=== PATIENT | female | born 1995 | race Caucasian/White ===

== ENCOUNTER 2018-11-21 01:04 | Emergency (ER) | payer OTHER ==
[~2018-11-21] VITALS: Ht 171.4 cm; Wt 70.8 kg
--- OUTSIDE RECORDS SUMMARY | 2018-11-21 01:11 | XMS REPORT | CCD ---
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 Name Role Phone PP Unavailable CCM Unavailable Summary Purpose Interface Exchange Insurance Providers Payer name Policy type / Coverage type Covered green party ID Effective Begin Date Effective End Date [employer] [id number] 2017 Unknown [employer] (2013 THRU) [employer] [id number] 2017 Unknown Family History Family History data not found Social History Social History Element Codes Description Effective Dates Marital status Unknown Single 05/05/2017 Number of children Unknown 0 05/05/2017 Employment Unknown Currently employed [employer] [place] 05/05/[address]: 594892557 Never smoker 05/05/[address]: 595516126 Never drinks alcohol 05/05/2017 Allergies, Adverse Reactions, Alerts Substance Reaction Codes Entered Date Inactivated Date Status NO KNOWN DRUG ALLERGIES Unknown 05/05/2017 No Inactive Date Active Past Medical History Illness Codes Condition Status Onset Date Resolved Date Acute laryngopharyngitis ICD-9: 465.0 ICD-10: J06.0 Active 08/29/2017 Unknown Other allergic rhinitis ICD-9: 477.8 ICD-10: J30.89 Active 09/13/2017 Unknown Acute suppurative otitis media without spontaneous rupture of ear drum, recurrent, left ear ICD-9: 382.00 ICD-10: H66.005 Active 08/31/2018 Unknown Encounter for surveillance of contraceptive pills ICD-9: V25.41 ICD-10: Z30.41 Active 10/27/2017 Unknown Encounter for initial prescription of contraceptive pills ICD-9: V25.01 ICD-10: Z30.011 Active 08/29/2017 Unknown Infectious mononucleosis, unspecified without complication ICD-9: 075 ICD-10: B27.90 Active 10/17/2017 Unknown Gastro-esophageal reflux disease without esophagitis ICD-9: 530.81 ICD-10: K21.9 Active 08/29/2017 Unknown Other fatigue ICD-9: 780.79 ICD-10: R53.83 Active 09/27/2017 Unknown Other malaise ICD-9: 780.79 ICD-10: R53.81 Active 09/27/2017 Unknown Other acute sinusitis ICD-9: 461.8 ICD-10: J01.80 Active 09/13/2017 Unknown Acute serous otitis media, left ear ICD-9: 381.01 ICD-10: H65.02 Active 08/29/2017 Unknown Contact with and (suspected) exposure to infections with a predominantly sexual mode of transmission ICD-9: V01.6 ICD-10: Z20.2 Active 05/05/2017 Unknown Problems Condition Codes Effective Dates Condition Status Acute laryngopharyngitis ICD-9: 465.0 ICD-10: J06.0 08/29/2017 Active Other allergic rhinitis ICD-9: 477.8 ICD-10: J30.89 09/13/2017 Active Acute suppurative otitis media without spontaneous rupture of ear drum, recurrent, left ear ICD-9: 382.00 ICD-10: H66.005 08/31/2018 Active Encounter for surveillance of contraceptive pills ICD-9: V25.41 ICD-10: Z30.41 10/27/2017 Active Encounter for initial prescription of contraceptive pills ICD-9: V25.01 ICD-10: Z30.011 08/29/2017 Active Infectious mononucleosis, unspecified without complication ICD-9: 075 ICD-10: B27.90 10/17/2017 Active Gastro-esophageal reflux disease without esophagitis ICD-9: 530.81 ICD-10: K21.9 08/29/2017 Active Other fatigue ICD-9: 780.79 ICD-10: R53.83 09/27/2017 Active Other malaise ICD-9: 780.79 ICD-10: R53.81 09/27/2017 Active Other acute sinusitis ICD-9: 461.8 ICD-10: J01.80 09/13/2017 Active Acute serous otitis media, left ear ICD-9: 381.01 ICD-10: H65.02 08/29/2017 Active Contact with and (suspected) exposure to infections with a predominantly sexual mode of transmission ICD-9: V01.6 ICD-10: Z20.2 05/05/2017 Active Medications Medication Codes Instructions Start Date Stop Date Status Fill Instructions levonorgestrel 1.5 mg tablet RxNorm: 003895 1 Tablet(s) PO once as soon as possible within 72 hours of unprotected sex 10/25/2018 No Stop Date Active levonorgestrel 1.5 mg tablet RxNorm: 944727 1 Tablet(s) PO once as soon as possible within 72 hours of unprotected sex 10/25/2018 10/24/2018 Inactive Keflex 500 mg capsule RxNorm: 297771 1 Capsule(s) PO TID 201710/04/2018 Inactive ceftriaxone 500 mg solution for injection RxNorm: 6422635 Inj 09/25/2018 09/25/2018 Inactive levonorgestrel 1.5 mg tablet RxNorm: 197010 1 Tablet(s) PO once as soon as possible within 72 hours of unprotected sex 09/08/2018 10/24/2018 Inactive Lo Loestrin Fe 1 mg-10 mcg (24)/10 mcg (2) tablet RxNorm: 5914835 1 Tablet(s) PO UD skip placebo week 09/05/20182018 Active prednisone 10 mg tablet RxNorm: 754499 Tablet(s) PO 08/31/2018 No Stop Date Active 6, 5,4,3,2,1 ceftriaxone 500 mg solution for injection RxNorm: 3017606 1 Milliliter(s) Inj 08/31/2018 08/31/2018 Inactive Kenalog 40 mg/mL suspension for injection RxNorm: 5854308 1 Milliliter(s) Inj 08/31/2018 08/31/2018 Inactive Augmentin 875 mg-125 mg tablet RxNorm: 053178 3/4 Tablet(s) PO BID 08/31/2018 09/09/2018 Inactive amoxicillin 500 mg capsule RxNorm: 562556 1 Capsule(s) PO TID 08/29/2018 08/29/2018 Inactive Lo Loestrin Fe 1 mg-10 mcg (24)/10 mcg (2) tablet RxNorm: 8398393 1 Tablet(s) PO UD 04/20/2018 09/04/2018 Inactive Lo Loestrin Fe 1 mg-10 mcg (24)/10 mcg (2) tablet RxNorm: 7737577 TAKE ONE TABLET BY MOUTH DIRECTED 03/27/2018 No Stop Date Active Lo Loestrin Fe 1 mg-10 mcg (24)/10 mcg (2) tablet RxNorm: 2106392 1 Tablet(s) PO UD 03/27/2018 04/19/2018 Inactive Lo Loestrin Fe 1 mg-10 mcg (24)/10 mcg (2) tablet RxNorm: 2226754 1 Tablet(s) PO UD 10/27/2017 02/23/2018 Inactive Tessalon Perles 100 mg capsule RxNorm: 965290 1-2 Capsule(s) PO TID as needed cough 09/14/2017 09/13/2017 Inactive Tessalon Perles 100 mg capsule RxNorm: 950422 1-2 Capsule(s) PO TID as needed cough 09/14/2017 09/18/2017 Inactive ceftriaxone 500 mg solution for injection RxNorm: 8083917 Inj 09/13/2017 09/13/2017 Inactive Kenalog 40 mg/mL suspension for injection RxNorm: 0900265 Milliliter(s) Inj 09/13/2017 09/13/2017 Inactive Zithromax Z-Rafael 250 mg tablet RxNorm: 744380 1 Tablet(s) PO UD 09/13/2017 04/10/2018 Inactive prednisone 20 mg tablet RxNorm: 212741 2 Tablet(s) PO daily 09/17/2017 Inactive Nexium 24HR 22.3 mg capsule,delayed release RxNorm: 931878 1 Capsule(s) PO daily 08/29/2017 04/11/2018 Inactive Lo Loestrin Fe 1 mg-10 mcg (24)/10 mcg (2) tablet RxNorm: 3556724 1 Tablet(s) PO UD 08/29/2017 10/26/2017 Inactive amoxicillin 500 mg capsule RxNorm: 536910 1 Capsule(s) PO TID 08/29/2017 09/04/2017 Inactive Depo-Provera 150 mg/mL intramuscular syringe RxNorm: 8105025 Milliliter(s) IM No Start Date 08/27/2017 Inactive levonorgestrel 1.5 mg tablet RxNorm: 113367 1 Tablet(s) PO once as soon as possible within 72 hours of unprotected sex No Start Date 09/07/2018 Inactive Medication Administered Medication Codes Instructions Start Date Status ceftriaxone 500 mg solution for injection RxNorm: 6677668 09/25/2018 No longer Active ceftriaxone 500 mg solution for injection RxNorm: 4016102 1Milliliter 08/31/2018 No longer Active Kenalog 40 mg/mL suspension for injection RxNorm: 7806957 1Milliliter 08/31/2018 No longer Active ceftriaxone 500 mg solution for injection RxNorm: 4514776 09/13/2017 No longer Active Kenalog 40 mg/mL suspension for injection RxNorm: 5557789 Milliliter 09/13/2017 No longer Active Immunizations No Immunization data Assessments Condition Codes Effective Dates Acute laryngopharyngitis ICD-10: J06.0 ICD-9: 465.0 09/25/2018 Other allergic rhinitis ICD-10: J30.89 ICD-9: 477.8 09/25/2018 Acute suppurative otitis media without spontaneous rupture of ear drum, recurrent, left ear ICD-10: H66.005 ICD-9: 382.00 08/31/2018 Encounter for surveillance of contraceptive pills ICD-10: Z30.41 ICD-9: V25.41 04/20/2018 Infectious mononucleosis, unspecified without complication ICD-10: B27.90 ICD-9: 075 10/17/2017 Gastro-esophageal reflux disease without esophagitis ICD-10 : K21.9 ICD-9: 530.81 09/27/2017 Other fatigue ICD-10: R53.83 ICD-9: 780.79 09/27/2017 Other malaise ICD-10: R53.81 ICD-9: 780.79 09/27/2017 Other acute sinusitis ICD-10: J01.80 ICD-9: 461.8 09/13/2017 Acute serous otitis media, left ear ICD-10: H65.02 ICD-9: 381.01 08/29/2017 Encounter for initial prescription of contraceptive pills ICD-10: Z30.011 ICD-9: V25.01 08/29/2017 Contact with and (suspected) exposure to infections with a predominantly sexual mode of transmission ICD-10: Z20.2 ICD-9: V01.6 05/05/2017 Reason For Visit Reason For Visit Effective Dates Notes cough 09/25/2018 sore throat 08/31/2018 sore throat 08/29/2018 medication follow up 04/20/2018 medication follow up 10/27/2017 fatigue 10/17/2017 fatigue 09/27/2017 sinus congestion 09/13/2017 sinus congestion 08/29/2017 rash 05/05/2017 Results Observation Observation Code Item Item Code Result Date Comp Metabolic Ijb933 NA 139 mEq/L 10/18/2017 Comp Metabolic Jaz959 K 4.3 mEq/L 10/18/2017 Comp Metabolic Pad532 CL 103 mEq/L 10/18/2017 Comp Metabolic Fga187 CO2 28.0 mEq/L 10/18/2017 Comp Metabolic Lom128 ANION GAP 12 10/18/2017 Comp Metabolic Uha006 GLUCOSE 82 mg/dL 10/18/2017 Comp Metabolic Rjc109 Creat 0.7 mg/dL 10/18/2017 Comp Metabolic Cdj621 eGFR 106 ml/min/1.73m2 10/18/2017 Comp Metabolic Zvb916 BUN 10 mg/dL 10/18/2017 Comp Metabolic Tvs937 B/C Ratio 13.5 Ratio 10/18/2017 Comp Metabolic Muc727 CALCIUM 9.4 mg/dL 10/18/2017 Comp Metabolic Wtj451 ALK PHOS 77 U/L 10/18/2017 Comp Metabolic Xgx247 AST(SGOT) 12 U/L 10/18/2017 Comp Metabolic Icb371 ALT(SGPT) 9 U/L 10/18/2017 Comp Metabolic Etl951 BILI T 0.4 mg/dL 10/18/2017 Comp Metabolic Cvi992 ALBUMIN 4.3 g/dL 10/18/2017 Comp Metabolic Ads758 TPRO 6.7 g/dL 10/18/2017 Comp Metabolic Txh897 GLOB 2.4 g/dL 10/18/2017 Comp Metabolic Opo291 A/G Ratio 1.8 Ratio 10/18/2017 Comp Metabolic Kvl251 Osmo 276 mOsmo 10/18/2017 Cbc With Differential Ord2 WBC 6.95 K/ul 10/18/2017 Cbc With Differential Ord2 RBC 4.27 M/ul 10/18/2017 Cbc With Differential Ord2 HGB 12.0 g/dl 10/18/2017 Cbc With Differential Ord2 HCT 37.3 % 10/18/2017 Cbc With Differential Ord2 Neut% 51.9 % 10/18/2017 Cbc With Differential Ord2 MCV 87.4 fl 10/18/2017 Cbc With Differential Ord2 Lymph% 39.4 % 10/18/2017 Cbc With Differential Ord2 Nolan% 6.9 % 10/18/2017 Cbc With Differential Ord2 MCH 28.1 pg 10/18/2017 Cbc With Differential Ord2 MCHC 32.2 pg 10/18/2017 Cbc With Differential Ord2 Eos% 1.2 % 10/18/2017 Cbc With Differential Ord2 PLT 293 K/ul 10/18/2017 Cbc With Differential Ord2 Baso% 0.6 % 10/18/2017 Cbc With Differential Ord2 RDW 12.9 % 10/18/2017 Cbc With Differential Ord2 Neut ABS# 3.61 K/ul 10/18/2017 Cbc With Differential Ord2 Lymph ABS# 2.74 K/ul 10/18/2017 Cbc With Differential Ord2 Nolan ABS# 0.5 K/ul 10/18/2017 Cbc With Differential Ord2 Eos ABS# 0.1 K/ul 10/18/2017 Cbc With Differential Ord2 Baso ABS# 0.0 K/ul 10/18/2017 GC/CHL PRB [id number] Chl trach DNA Negative 05/06/2017 GC/CHL PRB [id number] GC PROBE Negative 05/06/2017 Wet Prep [id number] Yeast Vaginal None 05/05/2017 Wet Prep [id number] Trichomonas None 05/05/2017 Review of Systems System Result Effective Dates Constitutional recent illness 09/25/2018 Constitutional chills 09/25/2018 Constitutional No diaphoresis 09/25/2018 Eyes No eye erythema 09/25/2018 Ears/Nose/Throat/Neck nasal allergies 03/2018 Ears/Nose/Throat/Neck nasal discharge 03/2018 Ears/Nose/Throat/Neck postnasal drip 03/2018 Ears/Nose/Throat/Neck sinus congestion Ears/Nose/Throat/Neck sore throat 2017 Cardiovascular No chest pain/pressure 03/2018 Cardiovascular No dyspnea 09/25/2018 Respiratory No chest congestion 2017 Respiratory cough 09/25/2018 Respiratory No dyspnea 09/25/2018 Gastrointestinal No constipation 2017 Gastrointestinal No diarrhea 09/25/2018 Gastrointestinal No nausea 09/25/2018 Gastrointestinal No vomiting 09/25/2018 Dermatologic No rash 09/25/2018 Neurologic No alteration of consciousness 09/25/2018 Neurologic No mental status change 2017 Constitutional No fever 09/25/2018 Constitutional recent illness 08/31/2018 Constitutional chills 08/31/2018 Constitutional No diaphoresis 08/31/2018 Constitutional fever 08/31/2018 Eyes No eye erythema 08/31/2018 Ears/Nose/Throat/Neck nasal allergies 09/2018 Ears/Nose/Throat/Neck nasal discharge 09/2018 Ears/Nose/Throat/Neck postnasal drip 09/2018 Ears/Nose/Throat/Neck sinus congestion Ears/Nose/Throat/Neck sore throat 2017 Cardiovascular No chest pain/pressure 09/2018 Cardiovascular No dyspnea 08/31/2018 Respiratory No chest congestion 2017 Respiratory cough 08/31/2018 Respiratory No dyspnea 08/31/2018 Gastrointestinal No constipation 2017 Gastrointestinal No diarrhea 08/31/2018 Gastrointestinal No nausea 08/31/2018 Gastrointestinal No vomiting 08/31/2018 Dermatologic No rash 08/31/2018 Neurologic No alteration of consciousness 08/31/2018 Neurologic No mental status change 2017 Ears/Nose/Throat/Neck otalgia 08/31/2018 Constitutional recent illness 08/29/2018 Constitutional chills 08/29/2018 Constitutional No diaphoresis 08/29/2018 Constitutional fever 08/29/2018 Eyes No eye erythema 08/29/2018 Ears/Nose/Throat/Neck nasal allergies 07/2018 Ears/Nose/Throat/Neck nasal discharge 07/2018 Ears/Nose/Throat/Neck postnasal drip 07/2018 Ears/Nose/Throat/Neck sinus congestion Ears/Nose/Throat/Neck sore throat 2017 Cardiovascular No chest pain/pressure 07/2018 Cardiovascular No dyspnea 08/29/2018 Respiratory No chest congestion 2017 Respiratory cough 08/29/2018 Respiratory No dyspnea 08/29/2018 Gastrointestinal No constipation 2017 Gastrointestinal No diarrhea 08/29/2018 Gastrointestinal No nausea 08/29/2018 Gastrointestinal No vomiting 08/29/2018 Dermatologic No rash 08/29/2018 Neurologic No alteration of consciousness 08/29/2018 Neurologic No mental status change 2017 Constitutional No recent illness 2017 Constitutional No chills 04/20/2018 Constitutional No diaphoresis 04/20/2018 Constitutional No fever 04/20/2018 Eyes No eye erythema 04/20/2018 Ears/Nose/Throat/Neck No nasal allergies 04/20/2018 Ears/Nose/Throat/Neck No nasal discharge 04/20/2018 Cardiovascular No chest pain/pressure Respiratory No chest congestion 2017 Respiratory No cough 04/20/2018 Gastrointestinal No abdominal pain 2017 Gastrointestinal No constipation 2017 Gastrointestinal No diarrhea 04/20/2018 Gastrointestinal No nausea 04/20/2018 Gastrointestinal No vomiting 04/20/2018 Neurologic No alteration of consciousness 04/20/2018 Neurologic No mental status change 2017 Cardiovascular No dyspnea 04/20/2018 Musculoskeletal No joint complaint 2017 Dermatologic No rash 04/20/2018 Constitutional No recent illness 2016 Constitutional No chills 10/27/2017 Constitutional No diaphoresis 10/27/2017 Constitutional No fever 10/27/2017 Eyes No eye erythema 10/27/2017 Ears/Nose/Throat/Neck No nasal allergies 10/27/2017 Ears/Nose/Throat/Neck No nasal discharge 10/27/2017 Cardiovascular No chest pain/pressure 05/2017 Respiratory No cough 10/27/2017 Respiratory No chest congestion 2016 Gastrointestinal No abdominal pain 2016 Gastrointestinal No constipation 2016 Gastrointestinal No diarrhea 10/27/2017 Gastrointestinal No vomiting 10/27/2017 Gastrointestinal No nausea 10/27/2017 Neurologic No alteration of consciousness 10/27/2017 Neurologic No mental status change 2016 Constitutional recent illness 10/17/2017 Constitutional No chills 10/17/2017 Constitutional No diaphoresis 10/17/2017 Constitutional fatigue 10/17/2017 Constitutional No fever 10/17/2017 Constitutional malaise 10/17/2017 Eyes No eye erythema 10/17/2017 Ears/Nose/Throat/Neck No nasal discharge 10/17/2017 Ears/Nose/Throat/Neck No nasal allergies 10/17/2017 Cardiovascular No chest pain/pressure Cardiovascular No dyspnea 10/17/2017 Respiratory No cough 10/17/2017 Respiratory No chest congestion 2016 Gastrointestinal abdominal pain 2016 Gastrointestinal No diarrhea 10/17/2017 Gastrointestinal No constipation 2016 Gastrointestinal No nausea 10/17/2017 Gastrointestinal No vomiting 10/17/2017 Musculoskeletal No joint complaint 2016 Neurologic No alteration of consciousness 10/17/2017 Neurologic No mental status change 2016 Constitutional recent illness 09/27/2017 Constitutional No chills 09/27/2017 Constitutional No diaphoresis 09/27/2017 Constitutional fatigue 09/27/2017 Constitutional No fever 09/27/2017 Constitutional malaise 09/27/2017 Eyes No eye erythema 09/27/2017 Ears/Nose/Throat/Neck nasal allergies 05/2017 Ears/Nose/Throat/Neck nasal discharge 05/2017 Cardiovascular No chest pain/pressure 05/2017 Cardiovascular No dyspnea 09/27/2017 Respiratory No chest congestion 2016 Respiratory No cough 09/27/2017 Gastrointestinal No constipation 2016 Gastrointestinal No diarrhea 09/27/2017 Gastrointestinal No nausea 09/27/2017 Gastrointestinal No vomiting 09/27/2017 Musculoskeletal No joint complaint 2016 Neurologic No alteration of consciousness 09/27/2017 Neurologic No mental status change 2016 Ears/Nose/Throat/Neck postnasal drip 05/2017 Ears/Nose/Throat/Neck sinus congestion Gastrointestinal No abdominal pain 2016 Constitutional recent illness 09/13/2017 Constitutional chills 09/13/2017 Constitutional No diaphoresis 09/13/2017 Constitutional fever 09/13/2017 Eyes No eye erythema 09/13/2017 Ears/Nose/Throat/Neck nasal allergies Ears/Nose/Throat/Neck nasal discharge Ears/Nose/Throat/Neck postnasal drip Ears/Nose/Throat/Neck sinus congestion Ears/Nose/Throat/Neck sore throat 2016 Cardiovascular No chest pain/pressure Cardiovascular No dyspnea 09/13/2017 Respiratory No chest congestion 2016 Respiratory cough 09/13/2017 Respiratory No dyspnea 09/13/2017 Gastrointestinal No constipation 2016 Gastrointestinal No diarrhea 09/13/2017 Gastrointestinal No nausea 09/13/2017 Gastrointestinal No vomiting 09/13/2017 Dermatologic No rash 09/13/2017 Neurologic No alteration of consciousness 09/13/2017 Neurologic No mental status change 2016 Constitutional fatigue 09/13/2017 Constitutional malaise 09/13/2017 Ears/Nose/Throat/Neck otalgia 09/13/2017 Respiratory dyspnea on exertion 2016 Respiratory productive sputum 09/13/2017 Constitutional recent illness 08/29/2017 Constitutional No chills 08/29/2017 Constitutional No diaphoresis 08/29/2017 Constitutional No fever 08/29/2017 Eyes No eye erythema 08/29/2017 Ears/Nose/Throat/Neck nasal allergies 07/2017 Ears/Nose/Throat/Neck nasal discharge 07/2017 Ears/Nose/Throat/Neck postnasal drip 07/2017 Ears/Nose/Throat/Neck No sore throat 07/2017 Ears/Nose/Throat/Neck No sinus congestion 08/29/2017 Ears/Nose/Throat/Neck otalgia 08/29/2017 Ears/Nose/Throat/Neck dizziness 2016 Cardiovascular No chest pain/pressure 07/2017 Cardiovascular No dyspnea 08/29/2017 Respiratory cough 08/29/2017 Respiratory No chest congestion 2016 Respiratory No dyspnea 08/29/2017 Gastrointestinal abdominal pain 2016 Gastrointestinal No constipation 2016 Gastrointestinal diarrhea 08/29/2017 Gastrointestinal gastroesophageal reflux 08/29/2017 Gastrointestinal No hematemesis 2016 Gastrointestinal No hematochezia 2016 Gastrointestinal No melena 08/29/2017 Gastrointestinal nausea 08/29/2017 Gastrointestinal No vomiting 08/29/2017 Musculoskeletal No joint complaint 2016 Dermatologic No rash 08/29/2017 Neurologic No alteration of consciousness 08/29/2017 Neurologic No mental status change 2016 Constitutional No recent illness 2016 Constitutional No chills 05/05/2017 Constitutional No diaphoresis 05/05/2017 Constitutional No fever 05/05/2017 Constitutional No fatigue 05/05/2017 Constitutional No malaise 05/05/2017 Eyes No eye erythema 05/05/2017 Ears/Nose/Throat/Neck No nasal allergies 05/05/2017 Ears/Nose/Throat/Neck No nasal discharge 05/05/2017 Cardiovascular No chest pain/pressure Cardiovascular No dyspnea 05/05/2017 Respiratory No cough 05/05/2017 Respiratory No chest congestion 2016 Respiratory No dyspnea 05/05/2017 Gastrointestinal No abdominal pain 2016 Gastrointestinal No constipation 2016 Gastrointestinal No diarrhea 05/05/2017 Gastrointestinal No vomiting 05/05/2017 Gastrointestinal No nausea 05/05/2017 Gastrointestinal No gastroesophageal reflux 05/05/2017 Genitourinary/Nephrology No dysuria 05/05 Genitourinary/Nephrology No breast complaint 05/05/2017 Genitourinary/Nephrology No genital lesion 05/05/2017 Genitourinary/Nephrology No pelvic pain 05/05/2017 Musculoskeletal No back pain 05/05/2017 Dermatologic No sores 05/05/2017 Dermatologic rash 05/05/2017 Neurologic No mental status change 2016 Neurologic No alteration of consciousness 05/05/2017 Physical Exam Exam Name System Name Item Name Status Result Effective Dates Notes Full Exam - ENT Constitutional general appearance Overall: well nourished 09/25/2018 None Full Exam - ENT Constitutional general appearance Overall: well developed 09/25/2018 None Full Exam - ENT Constitutional general appearance Overall: in no acute distress 09/25/2018 None Full Exam - ENT Ears/Nose/Throat otoscopic exam Overall: external auditory canals normal 09/25/2018 None Full Exam - ENT Ears/Nose/Throat otoscopic exam Left tympanic membrane: air -fluid level 09/25/2018 None Full Exam - ENT Ears/Nose/Throat otoscopic exam Right tympanic membrane: air-fluid level 09/25/2018 None Full Exam - ENT Ears/Nose/Throat lips/ teeth/gingiva Overall: benign lips 09/25/2018 None Full Exam - ENT Ears/Nose/Throat oropharynx Overall: oral mucosa clear 09/25/2018 None Full Exam - ENT Ears/Nose/Throat oropharynx Posterior Pharynx: clear post nasal drainage 09/25/2018 None Full Exam - ENT Ears/Nose/Throat oropharynx Posterior Pharynx: erythema 09/25/2018 None Full Exam - ENT Respiratory inspection Overall: no retractions 09/25/2018 None Full Exam - ENT Respiratory inspection Overall: normal rate 03/2018 None Full Exam - ENT Respiratory auscultation Overall: breath sounds clear bilaterally 09/25/2018 None Full Exam - ENT Cardiovascular auscultation of heart Rate: normal rate 09/25/2018 None Full Exam - ENT Cardiovascular auscultation of heart Rhythm: regular rhythm 09/25/2018 None Full Exam - ENT Lymphatic palpation of lymph nodes Overall: anterior cervical chain benign 09/25/2018 None Full Exam - ENT Lymphatic palpation of lymph nodes Overall: posterior cervical chain benign 09/25/2018 None Full Exam - ENT Neurologic mood and affect Overall: normal mood 09/25/2018 None Full Exam - ENT Neurologic mood and affect Overall: normal affect 09/25/2018 None Full Exam - ENT Neurologic orientation Overall: oriented to person, place and time 09/25/2018 None Full Exam - ENT Ears/Nose/Throat oropharynx Right tonsil: enlarged 09/25/2018 None Full Exam - ENT Ears/Nose/Throat oropharynx Right tonsil: erythematous 09/25/2018 None Full Exam - ENT Ears/Nose/Throat oropharynx Left tonsil: enlarged 09/25/2018 None Full Exam - ENT Ears/Nose/Throat oropharynx Left tonsil: erythematous 09/25/2018 None Full Exam - ENT Constitutional general appearance Overall: well nourished 08/31/2018 None Full Exam - ENT Constitutional general appearance Overall: well developed 08/31/2018 None Full Exam - ENT Constitutional general appearance Overall: in no acute distress 08/31/2018 None Full Exam - ENT Ears/Nose/Throat otoscopic exam Overall: external auditory canals normal 08/31/2018 None Full Exam - ENT Ears/Nose/Throat otoscopic exam Right tympanic membrane: air-fluid level 08/31/2018 None Full Exam - ENT Ears/Nose/Throat lips/ teeth/gingiva Overall: benign lips 08/31/2018 None Full Exam - ENT Ears/Nose/Throat oropharynx Overall: oral mucosa clear 08/31/2018 None Full Exam - ENT Ears/Nose/Throat oropharynx Posterior Pharynx: clear post nasal drainage 08/31/2018 None Full Exam - ENT Ears/Nose/Throat oropharynx Posterior Pharynx: erythema 08/31/2018 None Full Exam - ENT Respiratory inspection Overall: no retractions 08/31/2018 None Full Exam - ENT Respiratory inspection Overall: normal rate 09/2018 None Full Exam - ENT Respiratory auscultation Overall: breath sounds clear bilaterally 08/31/2018 None Full Exam - ENT Cardiovascular auscultation of heart Rate: normal rate 08/31/2018 None Full Exam - ENT Cardiovascular auscultation of heart Rhythm: regular rhythm 08/31/2018 None Full Exam - ENT Lymphatic palpation of lymph nodes Overall: anterior cervical chain benign 08/31/2018 None Full Exam - ENT Lymphatic palpation of lymph nodes Overall: posterior cervical chain benign 08/31/2018 None Full Exam - ENT Neurologic mood and affect Overall: normal mood 08/31/2018 None Full Exam - ENT Neurologic mood and affect Overall: normal affect 08/31/2018 None Full Exam - ENT Neurologic orientation Overall: oriented to person, place and time 08/31/2018 None Full Exam - ENT Ears/Nose/Throat oropharynx Left tonsil: enlarged 08/31/2018 None Full Exam - ENT Ears/Nose/Throat oropharynx Left tonsil: exudate 08/31/2018 None Full Exam - ENT Ears/Nose/Throat oropharynx Left tonsil: erythematous 08/31/2018 None Full Exam - ENT Ears/Nose/Throat oropharynx Right tonsil: enlarged 08/31/2018 None Full Exam - ENT Ears/Nose/Throat oropharynx Right tonsil: exudate 08/31/2018 None Full Exam - ENT Ears/Nose/Throat oropharynx Right tonsil: erythematous 08/31/2018 None Full Exam - ENT Ears/Nose/Throat otoscopic exam Left tympanic membrane: bulging 08/31/2018 None Full Exam - ENT Ears/Nose/Throat otoscopic exam Left tympanic membrane: erythematous 08/31/2018 None Full Exam - ENT Constitutional general appearance Overall: well nourished 08/29/2018 None Full Exam - ENT Constitutional general appearance Overall: well developed 08/29/2018 None Full Exam - ENT Constitutional general appearance Overall: in no acute distress 08/29/2018 None Full Exam - ENT Ears/Nose/Throat otoscopic exam Overall: external auditory canals normal 08/29/2018 None Full Exam - ENT Ears/Nose/Throat otoscopic exam Left tympanic membrane: air -fluid level 08/29/2018 None Full Exam - ENT Ears/Nose/Throat otoscopic exam Right tympanic membrane: air-fluid level 08/29/2018 None Full Exam - ENT Ears/Nose/Throat lips/ teeth/gingiva Overall: benign lips 08/29/2018 None Full Exam - ENT Ears/Nose/Throat oropharynx Overall: oral mucosa clear 08/29/2018 None Full Exam - ENT Ears/Nose/Throat oropharynx Posterior Pharynx: clear post nasal drainage 08/29/2018 None Full Exam - ENT Ears/Nose/Throat oropharynx Posterior Pharynx: erythema 08/29/2018 None Full Exam - ENT Respiratory inspection Overall: no retractions 08/29/2018 None Full Exam - ENT Respiratory inspection Overall: normal rate 07/2018 None Full Exam - ENT Respiratory auscultation Overall: breath sounds clear bilaterally 08/29/2018 None Full Exam - ENT Cardiovascular auscultation of heart Rate: normal rate 08/29/2018 None Full Exam - ENT Cardiovascular auscultation of heart Rhythm: regular rhythm 08/29/2018 None Full Exam - ENT Lymphatic palpation of lymph nodes Overall: anterior cervical chain benign 08/29/2018 None Full Exam - ENT Lymphatic palpation of lymph nodes Overall: posterior cervical chain benign 08/29/2018 None Full Exam - ENT Neurologic mood and affect Overall: normal mood 08/29/2018 None Full Exam - ENT Neurologic mood and affect Overall: normal affect 08/29/2018 None Full Exam - ENT Neurologic orientation Overall: oriented to person, place and time 08/29/2018 None Full Exam - General 1994 Constitutional general appearance Overall: well developed 04/20/2018 None Full Exam - General 1994 Constitutional general appearance Overall: in no acute distress 04/20/2018 None Full Exam - General 1994 Constitutional general appearance Overall: well nourished 04/20/2018 None Full Exam - General 1994 Eyes conjunctiva /eyelids Overall: conjunctiva clear 04/20/2018 None Full Exam - General 1994 Eyes conjunctiva /eyelids Overall: cornea clear 04/20/2018 None Full Exam - General 1994 Eyes conjunctiva /eyelids Overall: eyelids normal 04/20/2018 None Full Exam - General 1994 Ears/Nose/Throat otoscopic exam Overall: external auditory canals clear 04/20/2018 None Full Exam - General 1994 Ears/Nose/Throat otoscopic exam Overall: tympanic membranes clear 04/20/2018 None Full Exam - General 1994 Ears/Nose/Throat lips/teeth/gingiva Overall: benign lips 04/20/2018 None Full Exam - General 1994 Ears/Nose/Throat oral cavity/pharynx/larynx Overall: oral mucosa clear 04/20/2018 None Full Exam - General 1994 Respiratory auscultation Overall: breath sounds clear bilaterally 04/20/2018 None Full Exam - General 1994 Respiratory respiratory effort/rhythm Overall: no retractions 04/20/2018 None Full Exam - General 1994 Respiratory respiratory effort/rhythm Overall: normal rate 04/20/2018 None Full Exam - General 1994 Cardiovascular auscultation of heart Overall: regular rate 04/20/2018 None Full Exam - General 1994 Cardiovascular auscultation of heart Overall: normal heart sounds 04/20/2018 None Full Exam - General 1994 Musculoskeletal gait and station Overall: normal gait 04/20/2018 None Full Exam - General 1994 Musculoskeletal gait and station Overall: normal station 04/20/2018 None Full Exam - General 1994 Musculoskeletal head and neck Overall: head atraumatic 04/20/2018 None Full Exam - General 1994 Neurologic cranial nerves Overall: crainial nerves 2 - 12 grossly intact 04/20/2018 None Full Exam - General 1994 Psychiatric orientation/consciousness Overall: oriented to person, place and time 04/20/2018 None Full Exam - General 1994 Psychiatric mood and affect Overall: normal mood and affect 04/20/2018 None Full Exam - General 1994 Psychiatric appearance Overall: well-groomed, good eye contact 04/20/2018 None Full Exam - General 1994 Abdomen abdominal exam Overall: normal bowel sounds 04/20/2018 None Full Exam - General 1994 Abdomen abdominal exam Overall: no tenderness 04/20/2018 None Full Exam - General 1994 Constitutional general appearance Overall: well developed 10/27/2017 None Full Exam - General 1994 Constitutional general appearance Overall: in no acute distress 10/27/2017 None Full Exam - General 1994 Constitutional general appearance Overall: well nourished 10/27/2017 None Full Exam - General 1994 Eyes conjunctiva /eyelids Overall: conjunctiva clear 10/27/2017 None Full Exam - General 1994 Eyes conjunctiva /eyelids Overall: cornea clear 10/27/2017 None Full Exam - General 1994 Eyes conjunctiva /eyelids Overall: eyelids normal 10/27/2017 None Full Exam - General 1994 Ears/Nose/Throat otoscopic exam Overall: tympanic membranes clear 10/27/2017 None Full Exam - General 1994 Ears/Nose/Throat otoscopic exam Overall: external auditory canals clear 10/27/2017 None Full Exam - General 1994 Ears/Nose/Throat lips/teeth/gingiva Overall: benign lips 10/27/2017 None Full Exam - General 1994 Ears/Nose/Throat oral cavity/pharynx/larynx Overall: oral mucosa clear 10/27/2017 None Full Exam - General 1994 Respiratory respiratory effort/rhythm Overall: normal rate 10/27/2017 None Full Exam - General 1994 Respiratory respiratory effort/rhythm Overall: no retractions 10/27/2017 None Full Exam - General 1994 Respiratory auscultation Overall: breath sounds clear bilaterally 10/27/2017 None Full Exam - General 1994 Cardiovascular auscultation of heart Overall: regular rate 10/27/2017 None Full Exam - General 1994 Cardiovascular auscultation of heart Overall: normal heart sounds 10/27/2017 None Full Exam - General 1994 Musculoskeletal head and neck Overall: head atraumatic 10/27/2017 None Full Exam - General 1994 Musculoskeletal gait and station Overall: normal gait 10/27/2017 None Full Exam - General 1994 Musculoskeletal gait and station Overall: normal station 10/27/2017 None Full Exam - General 1994 Neurologic cranial nerves Overall: crainial nerves 2 - 12 grossly intact 10/27/2017 None Full Exam - General 1994 Psychiatric orientation/consciousness Overall: oriented to person, place and time 10/27/2017 None Full Exam - General 1994 Psychiatric mood and affect Overall: normal mood and affect 10/27/2017 None Full Exam - General 1994 Psychiatric appearance Overall: well-groomed, good eye contact 10/27/2017 None Full Exam - General 1994 Constitutional general appearance Overall: well developed 10/17/2017 None Full Exam - General 1994 Constitutional general appearance Overall: in no acute distress 10/17/2017 None Full Exam - General 1994 Constitutional general appearance Overall: well nourished 10/17/2017 None Full Exam - General 1994 Eyes conjunctiva /eyelids Overall: conjunctiva clear 10/17/2017 None Full Exam - General 1994 Eyes conjunctiva /eyelids Overall: cornea clear 10/17/2017 None Full Exam - General 1994 Eyes conjunctiva /eyelids Overall: eyelids normal 10/17/2017 None Full Exam - General 1994 Ears/Nose/Throat otoscopic exam Overall: external auditory canals clear 10/17/2017 None Full Exam - General 1994 Ears/Nose/Throat otoscopic exam Overall: tympanic membranes clear 10/17/2017 None Full Exam - General 1994 Ears/Nose/Throat lips/teeth/gingiva Overall: benign lips 10/17/2017 None Full Exam - General 1994 Ears/Nose/Throat oral cavity/pharynx/larynx Overall: oral mucosa clear 10/17/2017 None Full Exam - General 1994 Ears/Nose/Throat oral cavity/pharynx/larynx Overall: oropharyngeal mucosa clear 10/17/2017 None Full Exam - General 1994 Respiratory auscultation Overall: breath sounds clear bilaterally 10/17/2017 None Full Exam - General 1994 Respiratory respiratory effort/rhythm Overall: no retractions 10/17/2017 None Full Exam - General 1994 Respiratory respiratory effort/rhythm Overall: normal rate 10/17/2017 None Full Exam - General 1994 Cardiovascular auscultation of heart Overall: regular rate 10/17/2017 None Full Exam - General 1994 Cardiovascular auscultation of heart Overall: normal heart sounds 10/17/2017 None Full Exam - General 1994 Abdomen abdominal exam Overall: no tenderness 10/17/2017 None Full Exam - General 1994 Abdomen abdominal exam Overall: normal bowel sounds 10/17/2017 None Full Exam - General 1994 Musculoskeletal head and neck Overall: head atraumatic 10/17/2017 None Full Exam - General 1994 Musculoskeletal gait and station Overall: normal station 10/17/2017 None Full Exam - General 1994 Musculoskeletal gait and station Overall: normal gait 10/17/2017 None Full Exam - General 1994 Neurologic cranial nerves Overall: crainial nerves 2 - 12 grossly intact 10/17/2017 None Full Exam - General 1994 Psychiatric orientation/consciousness Overall: oriented to person, place and time 10/17/2017 None Full Exam - General 1994 Psychiatric mood and affect Overall: normal mood and affect 10/17/2017 None Full Exam - General 1994 Psychiatric appearance Overall: well-groomed, good eye contact 10/17/2017 None Full Exam - General 1994 Constitutional general appearance Overall: well developed 09/27/2017 None Full Exam - General 1994 Constitutional general appearance Overall: in no acute distress 09/27/2017 None Full Exam - General 1994 Constitutional general appearance Overall: well nourished 09/27/2017 None Full Exam - General 1994 Eyes conjunctiva /eyelids Overall: conjunctiva clear 09/27/2017 None Full Exam - General 1994 Eyes conjunctiva /eyelids Overall: cornea clear 09/27/2017 None Full Exam - General 1994 Eyes conjunctiva /eyelids Overall: eyelids normal 09/27/2017 None Full Exam - General 1994 Ears/Nose/Throat otoscopic exam Overall: external auditory canals clear 09/27/2017 None Full Exam - General 1994 Ears/Nose/Throat otoscopic exam Overall: tympanic membranes clear 09/27/2017 None Full Exam - General 1994 Ears/Nose/Throat lips/teeth/gingiva Overall: benign lips 09/27/2017 None Full Exam - General 1994 Ears/Nose/Throat oral cavity/pharynx/larynx Overall: oral mucosa clear 09/27/2017 None Full Exam - General 1994 Respiratory auscultation Overall: breath sounds clear bilaterally 09/27/2017 None Full Exam - General 1994 Respiratory respiratory effort/rhythm Overall: no retractions 09/27/2017 None Full Exam - General 1994 Respiratory respiratory effort/rhythm Overall: normal rate 09/27/2017 None Full Exam - General 1994 Cardiovascular auscultation of heart Overall: regular rate 09/27/2017 None Full Exam - General 1994 Cardiovascular auscultation of heart Overall: normal heart sounds 09/27/2017 None Full Exam - General 1994 Musculoskeletal gait and station Overall: normal gait 09/27/2017 None Full Exam - General 1994 Musculoskeletal gait and station Overall: normal station 09/27/2017 None Full Exam - General 1994 Musculoskeletal head and neck Overall: head atraumatic 09/27/2017 None Full Exam - General 1994 Neurologic cranial nerves Overall: crainial nerves 2 - 12 grossly intact 09/27/2017 None Full Exam - General 1994 Psychiatric orientation/consciousness Overall: oriented to person, place and time 09/27/2017 None Full Exam - General 1994 Psychiatric mood and affect Overall: normal mood and affect 09/27/2017 None Full Exam - General 1994 Psychiatric appearance Overall: well-groomed, good eye contact 09/27/2017 None Full Exam - General 1994 Ears/Nose/Throat oral cavity/pharynx/larynx Posterior Pharynx: clear post nasal drainage 09/27/2017 None Full Exam - ENT Constitutional general appearance Overall: well nourished 09/13/2017 None Full Exam - ENT Constitutional general appearance Overall: well developed 09/13/2017 None Full Exam - ENT Constitutional general appearance Overall: in no acute distress 09/13/2017 None Full Exam - ENT Ears/Nose/Throat otoscopic exam Overall: external auditory canals normal 09/13/2017 None Full Exam - ENT Ears/Nose/Throat otoscopic exam Left tympanic membrane: air -fluid level 09/13/2017 None Full Exam - ENT Ears/Nose/Throat lips/ teeth/gingiva Overall: benign lips 09/13/2017 None Full Exam - ENT Ears/Nose/Throat oropharynx Overall: oral mucosa clear 09/13/2017 None Full Exam - ENT Ears/Nose/Throat oropharynx Posterior Pharynx: clear post nasal drainage 09/13/2017 None Full Exam - ENT Ears/Nose/Throat oropharynx Posterior Pharynx: erythema 09/13/2017 None Full Exam - ENT Respiratory inspection Overall: no retractions 09/13/2017 None Full Exam - ENT Respiratory inspection Overall: normal rate None Full Exam - ENT Respiratory auscultation Overall: breath sounds clear bilaterally 09/13/2017 None Full Exam - ENT Cardiovascular auscultation of heart Rate: normal rate 09/13/2017 None Full Exam - ENT Cardiovascular auscultation of heart Rhythm: regular rhythm 09/13/2017 None Full Exam - ENT Lymphatic palpation of lymph nodes Overall: anterior cervical chain benign 09/13/2017 None Full Exam - ENT Lymphatic palpation of lymph nodes Overall: posterior cervical chain benign 09/13/2017 None Full Exam - ENT Neurologic mood and affect Overall: normal mood 09/13/2017 None Full Exam - ENT Neurologic mood and affect Overall: normal affect 09/13/2017 None Full Exam - ENT Neurologic orientation Overall: oriented to person, place and time 09/13/2017 None Full Exam - ENT Ears/Nose/Throat otoscopic exam Right tympanic membrane: erythematous 09/13/2017 None Full Exam - ENT Ears/Nose/Throat otoscopic exam Right tympanic membrane: retracted 09/13/2017 None Full Exam - ENT Face and Head palpation Left maxillary sinus: tender 09/13/2017 None Full Exam - ENT Face and Head palpation Right maxillary sinus: tender 09/13/2017 None Full Exam - ENT Constitutional general appearance Overall: well nourished 08/29/2017 None Full Exam - ENT Constitutional general appearance Overall: well developed 08/29/2017 None Full Exam - ENT Constitutional general appearance Overall: in no acute distress 08/29/2017 None Full Exam - ENT Ears/Nose/Throat otoscopic exam Overall: external auditory canals normal 08/29/2017 None Full Exam - ENT Ears/Nose/Throat otoscopic exam Left tympanic membrane: erythematous 08/29/2017 None Full Exam - ENT Ears/Nose/Throat otoscopic exam Left tympanic membrane: air -fluid level 08/29/2017 None Full Exam - ENT Ears/Nose/Throat otoscopic exam Right tympanic membrane: erythematous 08/29/2017 mild Full Exam - ENT Ears/Nose/Throat lips/ teeth/gingiva Overall: benign lips 08/29/2017 None Full Exam - ENT Ears/Nose/Throat oropharynx Overall: oral mucosa clear 08/29/2017 None Full Exam - ENT Ears/Nose/Throat oropharynx Posterior Pharynx: clear post nasal drainage 08/29/2017 None Full Exam - ENT Face and Head palpation Overall: no sinus tenderness 08/29/2017 None Full Exam - ENT Respiratory auscultation Overall: breath sounds clear bilaterally 08/29/2017 None Full Exam - ENT Respiratory inspection Overall: no retractions 08/29/2017 None Full Exam - ENT Respiratory inspection Overall: normal rate 07/2017 None Full Exam - ENT Cardiovascular auscultation of heart Overall: normal heart sounds 08/29/2017 None Full Exam - ENT Cardiovascular auscultation of heart Overall: regular rate 08/29/2017 None Full Exam - ENT Abdomen abdominal exam Overall: normal bowel sounds 08/29/2017 None Full Exam - ENT Abdomen abdominal exam Left upper quadrant: tender to palpation 08/29/2017 None Full Exam - ENT Abdomen abdominal exam Left upper quadrant: dull pain 08/29/2017 None Full Exam - ENT Abdomen abdominal exam Left upper quadrant: no guarding 08/29/2017 None Full Exam - ENT Abdomen abdominal exam Left upper quadrant: no rebound tenderness 08/29/2017 None Full Exam - ENT Abdomen abdominal exam Left upper quadrant: soft 08/29/2017 None Full Exam - ENT Abdomen abdominal exam Left lower quadrant: tender to palpation 08/29/2017 None Full Exam - ENT Abdomen abdominal exam Left lower quadrant: dull pain 08/29/2017 None Full Exam - ENT Abdomen abdominal exam Left lower quadrant: no guarding 08/29/2017 None Full Exam - ENT Abdomen abdominal exam Left lower quadrant: no rebound tenderness 08/29/2017 None Full Exam - ENT Abdomen abdominal exam Left lower quadrant: soft 08/29/2017 None Full Exam - ENT Abdomen abdominal exam Right upper quadrant: non-tender to palpation 08/29/2017 None Full Exam - ENT Abdomen abdominal exam Right upper quadrant: no guarding 08/29/2017 None Full Exam - ENT Abdomen abdominal exam Right upper quadrant: no rebound tenderness 08/29/2017 None Full Exam - ENT Abdomen abdominal exam Right upper quadrant: soft 08/29/2017 None Full Exam - ENT Abdomen abdominal exam Right lower quadrant: tender to palpation 08/29/2017 None Full Exam - ENT Abdomen abdominal exam Right lower quadrant: dull pain 08/29/2017 None Full Exam - ENT Abdomen abdominal exam Right lower quadrant: no guarding 08/29/2017 None Full Exam - ENT Abdomen abdominal exam Right lower quadrant: no rebound tenderness 08/29/2017 None Full Exam - ENT Abdomen abdominal exam Right lower quadrant: soft 08/29/2017 None Full Exam - ENT Abdomen abdominal exam Epigastric: tender to palpation 08/29/2017 None Full Exam - ENT Abdomen abdominal exam Epigastric: dull pain None Full Exam - ENT Abdomen abdominal exam Epigastric: no guarding 08/29/2017 None Full Exam - ENT Abdomen abdominal exam Epigastric: no rebound tenderness 08/29/2017 None Full Exam - ENT Abdomen abdominal exam Epigastric: soft 2016 None Full Exam - ENT Lymphatic palpation of lymph nodes Overall: posterior cervical chain benign 08/29/2017 None Full Exam - ENT Lymphatic palpation of lymph nodes Overall: anterior cervical chain benign 08/29/2017 None Full Exam - ENT Musculoskeletal head and neck Overall: head atraumatic 08/29/2017 None Full Exam - ENT Musculoskeletal gait and station Overall: normal gait 08/29/2017 None Full Exam - ENT Musculoskeletal gait and station Overall: normal station 08/29/2017 None Full Exam - ENT Musculoskeletal spine, ribs and pelvis Overall: good posture 08/29/2017 None Full Exam - ENT Neurologic mood and affect Overall: normal affect 08/29/2017 None Full Exam - ENT Neurologic mood and affect Overall: normal mood 08/29/2017 None Full Exam - ENT Neurologic orientation Overall: oriented to person, place and time 08/29/2017 None Full Exam - ENT Neurologic cranial nerves /coordination Overall: cranial nerves 2- 12 grossly intact 08/29/2017 None Full Exam - General 1994 Constitutional general appearance Overall: well developed 05/05/2017 None Full Exam - General 1994 Constitutional general appearance Overall: in no acute distress 05/05/2017 None Full Exam - General 1994 Constitutional general appearance Overall: well nourished 05/05/2017 None Full Exam - General 1994 Eyes conjunctiva /eyelids Overall: conjunctiva clear 05/05/2017 None Full Exam - General 1994 Eyes conjunctiva /eyelids Overall: eyelids normal 05/05/2017 None Full Exam - General 1994 Eyes pupils and irises Overall: pupils equal, round, reactive to light and accomodation 05/05/2017 None Full Exam - General 1994 Ears/Nose/Throat otoscopic exam Overall: external auditory canals clear 05/05/2017 None Full Exam - General 1994 Ears/Nose/Throat otoscopic exam Overall: tympanic membranes clear 05/05/2017 None Full Exam - General 1994 Ears/Nose/Throat lips/teeth/gingiva Overall: benign lips 05/05/2017 None Full Exam - General 1994 Ears/Nose/Throat oral cavity/pharynx/larynx Overall: oral mucosa clear 05/05/2017 None Full Exam - General 1994 Ears/Nose/Throat oral cavity/pharynx/larynx Overall: oropharyngeal mucosa clear 05/05/2017 None Full Exam - General 1994 Ears/Nose/Throat oral cavity/pharynx/larynx Overall: no masses 05/05/2017 None Full Exam - General 1994 Respiratory auscultation Overall: breath sounds clear bilaterally 05/05/2017 None Full Exam - General 1994 Respiratory respiratory effort/rhythm Overall: no retractions 05/05/2017 None Full Exam - General 1994 Respiratory respiratory effort/rhythm Overall: normal rate 05/05/2017 None Full Exam - General 1994 Cardiovascular auscultation of heart Overall: regular rate 05/05/2017 None Full Exam - General 1994 Cardiovascular auscultation of heart Overall: normal heart sounds 05/05/2017 None Full Exam - General 1994 Cardiovascular extremities Overall: no clubbing 05/05/2017 None Full Exam - General 1994 Chest/Breast breast and axillae palpation Overall: breasts non-tender 05/05/2017 None Full Exam - General 1994 Chest/Breast breast and axillae palpation Overall: axillae non-tender 05/05/2017 None Full Exam - General 1994 Chest/Breast breast and axillae palpation Overall: no nipple discharge 05/05/2017 None Full Exam - General 1994 Chest/Breast breast/chest inspection Overall: breasts to symmetric and without lesions 05/05/2017 None Full Exam - General 1994 Chest/Breast breast/chest inspection Overall: normal chest shape 05/05/2017 None Full Exam - General 1994 Abdomen abdominal exam Overall: no tenderness 05/05/2017 None Full Exam - General 1994 Abdomen abdominal exam Overall: normal bowel sounds 05/05/2017 None Full Exam - General 1994 Genitourinary uterus Overall: nontender 05/05/2017 None Full Exam - General 1994 Genitourinary cervix Overall: no discharge 05/05/2017 None Full Exam - General 1994 Genitourinary cervix Overall: no lesions 05/05/2017 None Full Exam - General 1994 Genitourinary cervix Overall: no cervical motion tenderness 05/05/2017 None Full Exam - General 1994 Genitourinary labia and vagina Overall: no discharge 05/05/2017 None Full Exam - General 1994 Genitourinary labia and vagina Overall: normal hair distribution 05/05/2017 None Full Exam - General 1994 Genitourinary labia and vagina Overall: no lesions 05/05/2017 None Full Exam - General 1994 Lymphatic neck nodes Overall: anterior cervical chain benign 05/05/2017 None Full Exam - General 1994 Lymphatic neck nodes Overall: posterior cervical chain benign 05/05/2017 None Full Exam - General 1994 Musculoskeletal head and neck Overall: head atraumatic 05/05/2017 None Full Exam - General 1994 Musculoskeletal gait and station Overall: normal gait 05/05/2017 None Full Exam - General 1994 Musculoskeletal gait and station Overall: normal station 05/05/2017 None Full Exam - General 1994 Musculoskeletal spine, ribs and pelvis Overall: good posture 05/05/2017 None Full Exam - General 1994 Neurologic cranial nerves Overall: crainial nerves 2 - 12 grossly intact 05/05/2017 None Full Exam - General 1994 Psychiatric orientation/consciousness Overall: oriented to person, place and time 05/05/2017 None Full Exam - General 1994 Psychiatric mood and affect Overall: normal mood and affect 05/05/2017 None Full Exam - General 1994 Psychiatric appearance Overall: well-groomed, good eye contact 05/05/2017 None Procedures Procedure Codes Date THER/PROPH/DIAG INJ SC/IM CPT-4: 43589 09/25/2018 ROCEPHIN, PER 250 MG CPT-4: J0696 09/25/2018 THER/PROPH/DIAG INJ SC/IM CPT-4: 02887 08/31/2018 TRIAMCINOLONE ACET INJ NOS CPT-4: J3301 08/31/2018 ROCEPHIN, PER 250 MG CPT-4: J0696 08/31/2018 THER/PROPH/DIAG INJ SC/IM CPT-4: 39759 09/13/2017 TRIAMCINOLONE ACET INJ NOS CPT-4: J3301 09/13/2017 ROCEPHIN, PER 250 MG CPT-4: J0696 09/13/2017 Vital Signs Date Vital 09/25/2018 Blood Pressure 1: 132/74 Code : 8480-6 BMI: 25.4 Code : 95088-7 Heart Rate 1 : 45 bpm Height: 5'7" SpO2: 99% Temperature: 36.7 (C) / 98.1 (F) Weight: 162 lbs 08/31/2018 Blood Pressure 1: 130/72 Code : 8480-6 BMI: 27.7 Code : 35434-7 Heart Rate 1 : 88 bpm Height: 5'7" SpO2: 98% Weight: 177 lbs 08/29/2018 Blood Pressure 1: 120/74 Code : 8480-6 BMI: 27.7 Code : 33406-4 Heart Rate 1 : 73 bpm Height: 5'7" SpO2: 98% Temperature: 36.9 (C) / 98.4 (F) Weight: 177 lbs 04/20/2018 Blood Pressure 1: 118/70 Code : 8480-6 BMI: 27.1 Code : 91241-1 Heart Rate 1 : 80 bpm Height: 5'7" SpO2: 99% Weight: 173 lbs 10/27/2017 Blood Pressure 1: 120/74 Code : 8480-6 BMI: 26.8 Code : 69098-4 Heart Rate 1 : 63 bpm Height: 5'7" SpO2: 99% Weight: 171 lbs 10/17/2017 Blood Pressure 1: 140/72 Code : 8480-6 Heart Rate 1: 78 bpm Height: 5'7" SpO2: 98% Weight: 09/27/2017 Blood Pressure 1: 124/72 Code : 8480-6 BMI: 26.6 Code : 11720-5 Heart Rate 1 : 72 bpm Height: 5'7" SpO2: 98% Weight: 170 lbs 09/13/2017 Blood Pressure 1: 130/74 Code : 8480-6 BMI: 26.6 Code : 49115-1 Heart Rate 1 : 55 bpm Height: 5'7" SpO2: 98% Temperature: 36.6 (C) / 97.8 (F) Weight: 170 lbs 08/29/2017 Blood Pressure 1: 128/70 Code : 8480-6 BMI: 26.6 Code : 94302-8 Heart Rate 1 : 68 bpm Height: 5'7" SpO2: 98% Weight: 170 lbs 05/05/2017 Blood Pressure 1: 120/86 Code : 8480-6 BMI: 26.8 Code : 39968-3 Heart Rate 1 : 86 bpm Height: 5'7" SpO2: 96% Weight: 171 lbs Functional Status No Functional Status data History of Present Illness Symptom Name Status Result Effective Date Notes cough Location in the throat 09/25/2018 None cough Quality constant 09/25/2018 None cough Quality productive 09/25/2018 None cough Onset and Resolution sudden in onset 09/25/2018 None sore throat Location on both sides 09/25/2018 None sore throat Quality burning 09/25/2018 None sore throat Quality constant 09/25/2018 None sore throat Quality aching 09/25/2018 None sore throat Onset and Resolution sudden in onset 09/25/2018 None sore throat Onset of Symptom 5 days ago 09/25/2018 None earache Location both ears 09/25/2018 None earache Onset and Resolution sudden in onset 09/25/2018 None earache Onset of Symptom 5 days ago 09/25/2018 None sore throat Location diffusely 08/31/2018 None sore throat Quality acute 08/31/2018 None sore throat Quality worsening 08/31/2018 None sore throat Onset and Resolution ongoing 08/31/2018 None sore throat Pertinent Findings cough 08/31/2018 None sore throat Pertinent Findings fever 08/31/2018 None earache Location both ears 08/31/2018 None earache Location left ear 08/31/2018 None earache Quality acute 08/31/2018 None earache Significant Medical Conditions allergic rhinitis 08/31/2018 None earache Significant Medications antibiotics 08/31/2018 None earache Significant Medications antihistamine 08/31/2018 None sore throat Location diffusely 08/29/2018 None sore throat Quality aching 08/29/2018 None sore throat Quality burning 08/29/2018 None sore throat Quality constant 08/29/2018 None sore throat Onset and Resolution sudden in onset 08/29/2018 None sore throat Onset of Symptom 3 days ago 08/29/2018 None headache Location diffusely 08/29/2018 None headache Quality constant 08/29/2018 None headache Quality aching 08/29/2018 None headache Onset and Resolution sudden in onset 08/29/2018 None headache Onset of Symptom 1 weeks ago 08/29/2018 None headache Frequency of Episodes daily 08/29/2018 None medication follow up Location oral intake 04/20/2018 None medication follow up Location oral intake 10/27/2017 None fatigue Limitation on Activities moderately limits activities 10/17/2017 None fatigue Triggers exercise 10/17/2017 None fatigue Triggers activity 10/17/2017 None fatigue Triggers exertion 10/17/2017 None fatigue Pertinent Findings Denies dyspnea 10/17/2017 None fatigue Pertinent Findings Denies fever 10/17/2017 None fatigue Onset and Resolution ongoing 10/17/2017 None fatigue Limitation on Activities moderately limits activities 09/27/2017 None fatigue Triggers activity 09/27/2017 None fatigue Triggers exercise 09/27/2017 None fatigue Triggers exertion 09/27/2017 None fatigue Pertinent Findings Denies dyspnea 09/27/2017 None fatigue Pertinent Findings Denies fever 09/27/2017 None fatigue Onset and Resolution ongoing 09/27/2017 None sinus congestion Location maxillary sinuses 09/27/2017 None sinus congestion Onset and Resolution ongoing 09/27/2017 None sinus congestion Pertinent Findings Denies fever 09/27/2017 None sinus congestion Location frontal sinuses 09/13/2017 None sinus congestion Quality constant 09/13/2017 None sinus congestion Quality pressure 09/13/2017 None sinus congestion Onset of Symptom 1 weeks ago 09/13/2017 None sinus congestion Frequency of Episodes daily 09/13/2017 None sinus congestion Pertinent Findings cough 09/13/2017 None nausea Onset of Symptom 1 weeks ago 09/13/2017 None nausea Frequency of Episodes daily 09/13/2017 None sinus congestion Onset and Resolution ongoing 09/13/2017 None sinus congestion Location frontal sinuses 08/29/2017 None sinus congestion Quality constant 08/29/2017 None sinus congestion Quality pressure 08/29/2017 None sinus congestion Onset and Resolution sudden in onset 08/29/2017 None sinus congestion Onset of Symptom 1 weeks ago 08/29/2017 None sinus congestion Frequency of Episodes daily 08/29/2017 None sinus congestion Pertinent Findings cough 08/29/2017 None nausea Onset of Symptom 1 weeks ago 08/29/2017 None nausea Frequency of Episodes daily 08/29/2017 None rash Location-Major on the upper body 05/05/2017 None rash Location-Major on the lower body 05/05/2017 None rash Color erythematous 05/05/2017 None rash Onset of Symptom 2-3 days ago 05/05/2017 None rash Pertinent Findings Denies fever 05/05/2017 None rash Pertinent Findings itching 05/05/2017 None Advance Directives No Advance Directive data Encounters Encounter Performer Location Codes Date EST. PATIENT, LEVEL III Diagnosis: Acute laryngopharyngitis[ICD10: J06.0] Diagnosis: Other allergic rhinitis[ICD10: J30.89] Alexandra Meraz MD, [facility] CPT-4: 54501 09/25/2018 68460 EST. PATIENT, LEVEL III Diagnosis: Acute suppurative otitis media without spontaneous rupture of ear drum, recurrent, left ear[ICD10: H66.005] Diagnosis: Acute laryngopharyngitis[ICD10: J06.0] Diagnosis: Other allergic rhinitis[ICD10: J30.89] Alexandra Meraz MD, [facility] CPT-4: 80414 08/31/2018 60675 EST. PATIENT, LEVEL III Diagnosis: Acute laryngopharyngitis[ICD10: J06.0] Diagnosis: Other allergic rhinitis[ICD10: J30.89] Alexandra Meraz MD, [facility] CPT-4: 86249 08/29/2018 09873 EST. PATIENT, LEVEL III Diagnosis: Encounter for surveillance of contraceptive pills[ICD10: Z30.41] Alexandra Meraz MD, [facility] CPT-4: 46585 04/20/2018 48103 EST. PATIENT, LEVEL III Diagnosis: Encounter for surveillance of contraceptive pills[ICD10: Z30.41] Alexandra Meraz MD, [facility] CPT-4: 93372 10/27/2017 69790 EST. PATIENT, LEVEL IV Diagnosis: Infectious mononucleosis, unspecified without complication[ICD10: B27.90] Alexandra Meraz MD, [facility] CPT-4: 06598 2016 12239 EST. PATIENT, LEVEL IV Diagnosis: Other allergic rhinitis[ICD10: J30.89] Diagnosis: Other fatigue[ICD10: R53.83] Diagnosis: Other malaise[ICD10: R53.81] Diagnosis: Gastro-esophageal reflux disease without esophagitis[ICD10: K21.9] Alexandra Meraz MD, [facility] CPT-4: 20819 09/27/2017 68786 EST. PATIENT, LEVEL IV Diagnosis: Acute laryngopharyngitis[ICD10: J06.0] Diagnosis: Other acute sinusitis[ICD10: J01.80] Diagnosis: Other allergic rhinitis[ICD10: J30.89] Alexandra Meraz MD, [facility] CPT-4: 48917 09/13/2017 41098 EST. PATIENT, LEVEL IV Diagnosis: Acute serous otitis media, left ear[ICD10: H65.02] Diagnosis: Acute laryngopharyngitis[ICD10: J06.0] Diagnosis: Gastro-esophageal reflux disease without esophagitis[ICD10: K21.9] Diagnosis: Encounter for initial prescription of contraceptive pills[ICD10: Z30.011] [facility] CPT-4: 20765 2016 (19982) PREV VISIT NEW AGE 18-39 Diagnosis: Contact with and (suspected) exposure to infections with a predominantly sexual mode of transmission[ICD10: Z20.2] [facility] CPT-4: 43461 05/05/2017 Plan of Care Planned Activity Notes Codes Status Date Visit Plan: URI - Pt advised to increase fluids, vitamin C. Discussed natural and expected course of this diagnosis and need to alert me if symptoms do not follow expected course, or if any worse. RX sent to patient' s pharmacy. Allergies - chronic - recommended pt to use allergy medication as prescribed. Pt has been counseled as to the appropriate use of the medication. Pt to call if allergy symptoms are not controlled with the medication. If using nasal spray, instructions as follows: Nasal spray- use twice daily, one spray per nostril twice daily, after 30 minutes, rinse out nose with saline spray.. Use opposite hand per nostril to spray in the nasal steroid allergy spray. 09/25/2018 Appointment: Alexandra Hahn WPtel: [address] [place], [place] [id number] (15 min) Moderate 09/25/2018 Patient Education: Patient Medication Summary Completed 09/25/2018 Patient Education: Sore Throat Completed 09/25/2018 Referral: External, Ordering Provider Referral Initiated 09/18/2018 Visit Plan: URI - Pt advised to increase fluids, vitamin C. Discussed natural and expected course of this diagnosis and need to alert me if symptoms do not follow expected course, or if any worse. RX sent to patient' s pharmacy. Allergies - chronic - recommended pt to use allergy medication as prescribed. Pt has been counseled as to the appropriate use of the medication. Pt to call if allergy symptoms are not controlled with the medication. If using nasal spray, instructions as follows: Nasal spray- use twice daily, one spray per nostril twice daily, after 30 minutes, rinse out nose with saline spray.. Use opposite hand per nostril to spray in the nasal steroid allergy spray. Otitis Media - discussed the diagnosis with the patient, script sent electronically to the pharmacy for treatment of the infection. The disease course was discussed and the need to notify the clinic if symptoms do not improve or if they acutely worsen. 08/31/2018 Visit Plan: URI - Pt advised to increase fluids, vitamin C. Discussed natural and expected course of this diagnosis and need to alert me if symptoms do not follow expected course, or if any worse. RX sent to patient' s pharmacy. Allergies - chronic - recommended pt to use allergy medication as prescribed. Pt has been counseled as to the appropriate use of the medication. Pt to call if allergy symptoms are not controlled with the medication. If using nasal spray, instructions as follows: Nasal spray- use twice daily, one spray per nostril twice daily, after 30 minutes, rinse out nose with saline spray.. Use opposite hand per nostril to spray in the nasal steroid allergy spray. Otitis Media - discussed the diagnosis with the patient, script sent electronically to the pharmacy for treatment of the infection. The disease course was discussed and the need to notify the clinic if symptoms do not improve or if they acutely worsen. 08/31/2018 Appointment: Alexandra Hahn WPtel: [facility] (15 min) Moderate 08/31/2018 Patient Education: Patient Medication Summary Completed 08/31/2018 Patient Education: Cough Completed 08/31/2018 Care Plan: Referral Order SNOMED-CT : [id number] Pending 08/31/2018 Visit Plan: URI - Pt advised to increase fluids, vitamin C. Discussed natural and expected course of this diagnosis and need to alert me if symptoms do not follow expected course, or if any worse. RX sent to patient' s pharmacy. Allergies - chronic - recommended pt to use allergy medication as prescribed. Pt has been counseled as to the appropriate use of the medication. Pt to call if allergy symptoms are not controlled with the medication. If using nasal spray, instructions as follows: Nasal spray- use twice daily, one spray per nostril twice daily, after 30 minutes, rinse out nose with saline spray.. Use opposite hand per nostril to spray in the nasal steroid allergy spray. 08/29/2018 [facility]ment: [facility] [phone] [facility] (15 min) Moderate 08/29/2018 Patient Education: Patient Medication Summary Completed 08/29/2018 Patient Education: Sore Throat Completed 08/29/2018 Visit Plan: control - pt is to continue control as directed - pt is to notify clinic with any changes, questions, or concerns. Pt is to notify clinic if she would like to be referred to [facility] to talk about other control options. 04/20/2018 Appointment: [facility] [phone] [facility] (30 min) Complex 04/20/2018 Patient Education: Patient Medication Summary Completed 04/20/2018 Visit Plan: control - pt is to continue control as directed - pt is to notify clinic with any changes, questions, or concerns. Pt is to notify clinic if she would like to be referred to [facility] to talk about other control options. 10/27/2017 Appointment: [facility] [phone] [facility] (30 min) Complex 10/27/2017 Patient Education: Patient Medication Summary Completed 10/27/2017 Visit Plan: Fatigue, Nolan - ongoing - will repeat labs - will consider US if pt develops abd pain or other acute changes - pt is to avoid contact sports while experiencing mono symptoms - pt is to rest and push fluids, pt is to notify clinic if symptoms do not improve, if they worsen, or with any changes questions or concerns. 10/17/2017 Appointment: [facility]ahn [facility] [phone] [facility] [address] [facility] [address] (15 min) Moderate 10/17/2017 Patient Education: Patient Medication Summary Completed 10/17/2017 Visit Plan: Allergies - chronic - recommended pt to use allergy medication as prescribed. Pt has been counseled as to the appropriate use of the medication. Pt to call if allergy symptoms are not controlled with the medication. If using nasal spray, instructions as follows: Nasal spray- use twice daily, one spray per nostril twice daily, after 30 minutes, rinse out nose with saline spray.. Use opposite hand per nostril to spray in the nasal steroid allergy spray. Esophageal Reflux - the patient has been counseled against excessive intake of caffeine, spicy foods, peppermint, and cinnamon - all of which can exacerbate esophageal reflux. The patient is to take medications as prescribed and call the office if the symptoms are not improving. Fatigue, malaise - will check labs and treat as indicated - pt is to notify clinic if symptoms do not improve, if they worsen, or with any changes, questions, or concerns. 09/27/2017 Appointment: Alexandra Hahn WPtel: [phone] [facility] (15 min) Moderate 09/27/2017 Patient Education: Patient Medication Summary Completed 09/27/2017 Patient Education: Obesity Completed 09/27/2017 Referral: Lukasz Rhodes WPtel: Referral Initiated 09/19/2017 Visit Plan: URI - Pt advised to increase fluids, vitamin C. Discussed natural and expected course of this diagnosis and need to alert me if symptoms do not follow expected course, or if any worse. RX sent to patient' s pharmacy. Sinusitis - Pt has acute infection - pain in face, maxillary region , Pt informed to use decongestant, RX given to patient, sinus rinses also recommended. Call if symptoms do not show improvement. Allergies - chronic - recommended pt to use allergy medication as prescribed. Pt has been counseled as to the appropriate use of the medication. Pt to call if allergy symptoms are not controlled with the medication. If using nasal spray, instructions as follows: Nasal spray- use twice daily, one spray per nostril twice daily, after 30 minutes, rinse out nose with saline spray.. Use opposite hand per nostril to spray in the nasal steroid allergy spray. 09/13/2017 Appointment: Alexandra Hahn WPtel: [phone] [facility] (30 min) Complex 09/13/2017 Patient Education: Patient Medication Summary Completed 09/13/2017 Visit Plan: Otitis Media - discussed the diagnosis with the patient, script sent electronically to the pharmacy for treatment of the infection. The disease course was discussed and the need to notify the clinic if symptoms do not improve or if they acutely worsen. Esophageal Reflux - the patient has been counseled against excessive intake of caffeine, spicy foods, peppermint, and cinnamon - all of which can exacerbate esophageal reflux. The patient is to take medications as prescribed and call the office if the symptoms are not improving. control - pt given RX for lo loestrin - will refer to [facility] 08/29/2017 Appointment: Alexandra Hahn WPtel: [facility] (30 min) Complex 08/29/2017 Patient Education: Patient Medication Summary Completed 08/29/2017 Patient Education: Obesity Completed 08/29/2017 Care Plan: Referral Order SNOMED-CT : [id number] Pending 08/29/2017 Visit Plan: Well Adult Female - exam completed. Pap and breast exam completed. Pt will be called with results of her testing. She was advised to continue with yearly annual exams. Safe sex practices discussed during office visit today. Call if any abnormal gynecologic issues during the next year, otherwise, RTC yearly or prn. 05/05/2017 Appointment: Alexandra Hahn WPtel: [facility] New Patient 05/05/2017 Patient Education: Patient Medication Summary Completed 05/05/2017 Patient Education: Obesity Completed 05/05/2017 Care Plan: GC/CHL PRB Pending 05/05/2017 Care Plan: C WET PA Pending 05/05/2017 Referral: Lukasz Rhodes WPtel: Referral Initiated Referral: External, Ordering Provider Referral Initiated Instructions Comment Start nexium daily - let me know if it is helping and we can send you a script Start amoxicillin - take with food, take a probiotic ([facility], [facility], or generic) I will refer you to [facility] - let me know if you have any questions on the lo loestrin. Otitis Media - discussed the diagnosis with the patient, script sent electronically to the pharmacy for treatment of the infection. The disease course was discussed and the need to notify the clinic if symptoms do not improve or if they acutely worsen. Esophageal Reflux - the patient has been counseled against excessive intake of caffeine, spicy foods, peppermint, and cinnamon - all of which can exacerbate esophageal reflux. The patient is to take medications as prescribed and call the office if the symptoms are not improving. control - pt given RX for lo loestrin - will refer to [facility] Tuesday 09/18 at 1:40PM - they will send you paperwork to fill out and bring with. Bring your insurance card and photo idea. . URI - Pt advised to increase fluids, vitamin C. Discussed natural and expected course of this diagnosis and need to alert me if symptoms do not follow expected course, or if any worse. RX sent to patient's pharmacy. Allergies - chronic - recommended pt to use allergy medication as prescribed. Pt has been counseled as to the appropriate use of the medication. Pt to call if allergy symptoms are not controlled with the medication. If using nasal spray, instructions as follows: Nasal spray- use twice daily, one spray per nostril twice daily, after 30 minutes, rinse out nose with saline spray.. Use opposite hand per nostril to spray in the nasal steroid allergy spray. Otitis Media - discussed the diagnosis with the patient, script sent electronically to the pharmacy for treatment of the infection. The disease course was discussed and the need to notify the clinic if symptoms do not improve or if they acutely worsen. Tuesday 09/18 at 1:40PM - they will send you paperwork to fill out and bring with. Bring your insurance card and photo idea. . URI - Pt advised to increase fluids, vitamin C. Discussed natural and expected course of this diagnosis and need to alert me if symptoms do not follow expected course, or if any worse. RX sent to patient's pharmacy. Allergies - chronic - recommended pt to use allergy medication as prescribed. Pt has been counseled as to the appropriate use of the medication. Pt to call if allergy symptoms are not controlled with the medication. If using nasal spray, instructions as follows: Nasal spray- use twice daily, one spray per nostril twice daily, after 30 minutes, rinse out nose with saline spray.. Use opposite hand per nostril to spray in the nasal steroid allergy spray. Otitis Media - discussed the diagnosis with the patient, script sent electronically to the pharmacy for treatment of the infection. The disease course was discussed and the need to notify the clinic if symptoms do not improve or if they acutely worsen. Start prednisone tomorrow. URI - Pt advised to increase fluids, vitamin C. Discussed natural and expected course of this diagnosis and need to alert me if symptoms do not follow expected course, or if any worse. RX sent to patient's pharmacy. Sinusitis - Pt has acute infection - pain in face, maxillary region, Pt informed to use decongestant, RX given to patient, sinus rinses also recommended. Call if symptoms do not show improvement. Allergies - chronic - recommended pt to use allergy medication as prescribed. Pt has been counseled as to the appropriate use of the medication. Pt to call if allergy symptoms are not controlled with the medication. If using nasal spray, instructions as follows: Nasal spray- use twice daily, one spray per nostril twice daily, after 30 minutes, rinse out nose with saline spray.. Use opposite hand per nostril to spray in the nasal steroid allergy spray. . Well Adult Female - exam completed. Pap and breast exam completed. Pt will be called with results of her testing. She was advised to continue with yearly annual exams. Safe sex practices discussed during office visit today. Call if any abnormal gynecologic issues during the next year, otherwise, RTC yearly or prn. . Fatigue, Nolan - ongoing - will repeat labs - will consider US if pt develops abd pain or other acute changes - pt is to avoid contact sports while experiencing mono symptoms - pt is to rest and push fluids , pt is to notify clinic if symptoms do not improve, if they worsen, or with any changes questions or concerns. . URI - Pt advised to increase fluids, vitamin C. Discussed natural and expected course of this diagnosis and need to alert me if symptoms do not follow expected course, or if any worse. RX sent to patient's pharmacy. Allergies - chronic - recommended pt to use allergy medication as prescribed. Pt has been counseled as to the appropriate use of the medication. Pt to call if allergy symptoms are not controlled with the medication. If using nasal spray, instructions as follows: Nasal spray- use twice daily, one spray per nostril twice daily, after 30 minutes, rinse out nose with saline spray.. Use opposite hand per nostril to spray in the nasal steroid allergy spray. . URI - Pt advised to increase fluids, vitamin C. Discussed natural and expected course of this diagnosis and need to alert me if symptoms do not follow expected course, or if any worse. RX sent to patient's pharmacy. Allergies - chronic - recommended pt to use allergy medication as prescribed. Pt has been counseled as to the appropriate use of the medication. Pt to call if allergy symptoms are not controlled with the medication. If using nasal spray, instructions as follows: Nasal spray- use twice daily, one spray per nostril twice daily, after 30 minutes, rinse out nose with saline spray.. Use opposite hand per nostril to spray in the nasal steroid allergy spray. . control - pt is to continue control as directed - pt is to notify clinic with any changes, questions, or concerns. Pt is to notify clinic if she would like to be referred to [facility] to talk about other control options. . control - pt is to continue control as directed - pt is to notify clinic with any changes, questions, or concerns. Pt is to notify clinic if she would like to be referred to [facility] to talk about other control options. zyrtec or generic over the counter - daily zantac or generic over the counter - twice a day Flonase nasal spray or generic over the counter - daily Will check labs. will refer to Dr. Arevalo, if it resolves then you can cancel your appointment. If you are feeling like you are not up to doing the weekend workout let me know and I will write you a note. . Allergies - chronic - recommended pt to use allergy medication as prescribed. Pt has been counseled as to the appropriate use of the medication. Pt to call if allergy symptoms are not controlled with the medication. If using nasal spray, instructions as follows: Nasal spray- use twice daily, one spray per nostril twice daily, after 30 minutes, rinse out nose with saline spray.. Use opposite hand per nostril to spray in the nasal steroid allergy spray. Esophageal Reflux - the patient has been counseled against excessive intake of caffeine, spicy foods, peppermint, and cinnamon - all of which can exacerbate esophageal reflux. The patient is to take medications as prescribed and call the office if the symptoms are not improving. Fatigue, malaise - will check labs and treat as indicated - pt is to notify clinic if symptoms do not improve, if they worsen, or with any changes, questions, or concerns.
--- OUTSIDE RECORDS SUMMARY | 2018-11-21 01:12 | XMS REPORT | CCD ---
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 Name Role Phone PP Unavailable CCM Unavailable Summary Purpose Interface Exchange Insurance Providers Payer name Policy type / Coverage type Covered green party ID Effective Begin Date Effective End Date [employer] [id number] 2017 Unknown [employer] (2013 THRU) [employer] [id number] 2017 Unknown Family History Family History data not found Social History Social History Element Codes Description Effective Dates Marital status Unknown Single 05/05/2017 Number of children Unknown 0 05/05/2017 Employment Unknown Currently employed [employer] 05/05/[address]: 782067406 Never smoker 05/05/[address]: 633491959 Never drinks alcohol 05/05/2017 Allergies, Adverse Reactions, [...] Start Date Stop Date Status Fill Instructions Keflex 500 mg capsule RxNorm: 447881 1 Capsule(s) PO TID 201710/04/2018 Active ceftriaxone 500 mg solution for injection RxNorm: 9628410 Inj 09/25/2018 09/25/2018 Inactive levonorgestrel 1.5 mg tablet RxNorm: 132256 1 Tablet(s) PO once as soon as possible within 72 hours of unprotected sex 09/08/2018 No Stop Date Active Lo Loestrin Fe 1 mg-10 mcg (24)/10 mcg (2) tablet RxNorm: 5869858 1 Tablet(s) PO UD skip placebo week 09/05/20182018 Active prednisone 10 mg tablet RxNorm: 411124 Tablet(s) PO 08/31/2018 No Stop Date Active 6, 5,4,3,2,1 ceftriaxone 500 mg solution for injection RxNorm: 6517198 1 Milliliter(s) Inj 08/31/2018 08/31/2018 Inactive Kenalog 40 mg/mL suspension for injection RxNorm: 1061560 1 Milliliter(s) Inj 08/31/2018 08/31/2018 Inactive Augmentin 875 mg-125 mg tablet RxNorm: 992933 3/4 Tablet(s) PO BID 08/31/2018 09/09/2018 Inactive amoxicillin 500 mg capsule RxNorm: 407687 1 Capsule(s) PO TID 08/29/2018 08/29/2018 Inactive Lo Loestrin Fe 1 mg-10 mcg (24)/10 mcg (2) tablet RxNorm: 0298822 1 Tablet(s) PO UD 04/20/2018 09/04/2018 Inactive Lo Loestrin Fe 1 mg-10 mcg (24)/10 mcg (2) tablet RxNorm: 4492525 TAKE ONE TABLET BY MOUTH DIRECTED 03/27/2018 No Stop Date Active Lo Loestrin Fe 1 mg-10 mcg (24)/10 mcg (2) tablet RxNorm: 5931162 1 Tablet(s) PO UD 03/27/2018 04/19/2018 Inactive Lo Loestrin Fe 1 mg-10 mcg (24)/10 mcg (2) tablet RxNorm: 9150489 1 Tablet(s) PO UD 10/27/2017 02/23/2018 Inactive Tessalon Perles 100 mg capsule RxNorm: 230035 1-2 Capsule(s) PO TID as needed cough 09/14/2017 09/13/2017 Inactive Tessalon Perles 100 mg capsule RxNorm: 228892 1-2 Capsule(s) PO TID as needed cough 09/14/2017 09/18/2017 Inactive ceftriaxone 500 mg solution for injection RxNorm: 9623652 Inj 09/13/2017 09/13/2017 Inactive Kenalog 40 mg/mL suspension for injection RxNorm: 0693552 Milliliter(s) Inj 09/13/2017 09/13/2017 Inactive Zithromax Z-Rafael 250 mg tablet RxNorm: 681024 1 Tablet(s) PO UD 09/13/2017 04/10/2018 Inactive prednisone 20 mg tablet RxNorm: 222406 2 Tablet(s) PO daily 09/17/2017 Inactive Nexium 24HR 22.3 mg capsule,delayed release RxNorm: 581741 1 Capsule(s) PO daily 08/29/2017 04/11/2018 Inactive Lo Loestrin Fe 1 mg-10 mcg (24)/10 mcg (2) tablet RxNorm: 7077014 1 Tablet(s) PO UD 08/29/2017 10/26/2017 Inactive amoxicillin 500 mg capsule RxNorm: 499965 1 Capsule(s) PO TID 08/29/2017 09/04/2017 Inactive Depo-Provera 150 mg/mL intramuscular syringe RxNorm: 0564214 Milliliter(s) IM No Start Date 08/27/2017 Inactive levonorgestrel 1.5 mg tablet RxNorm: 131037 1 Tablet(s) PO once as soon as possible within 72 hours of unprotected sex No Start Date 09/07/2018 Inactive Medication Administered Medication Codes Instructions Start Date Status ceftriaxone 500 mg solution for injection RxNorm: 5770198 09/25/2018 No longer Active ceftriaxone 500 mg solution for injection RxNorm: 7920816 1Milliliter 08/31/2018 No longer Active Kenalog 40 mg/mL suspension for injection RxNorm: 1329802 1Milliliter 08/31/2018 No longer Active ceftriaxone 500 mg solution for injection RxNorm: 9610159 09/13/2017 No longer Active Kenalog 40 mg/mL suspension for injection RxNorm: 4223927 Milliliter 09/13/2017 No longer Active Immunizations No [...] Item Item Code Result Date Comp Metabolic Dte366 NA 139 mEq/L 10/18/2017 Comp Metabolic Twx535 K 4.3 mEq/L 10/18/2017 Comp Metabolic Awk080 CL 103 mEq/L 10/18/2017 Comp Metabolic Yjw522 CO2 28.0 mEq/L 10/18/2017 Comp Metabolic Vfk987 ANION GAP 12 10/18/2017 Comp Metabolic Jnc830 GLUCOSE 82 mg/dL 10/18/2017 Comp Metabolic Adc617 Creat 0.7 mg/dL 10/18/2017 Comp Metabolic Unu589 eGFR 106 ml/min/1.73m2 10/18/2017 Comp Metabolic Onl999 BUN 10 mg/dL 10/18/2017 Comp Metabolic Hso588 B/C Ratio 13.5 Ratio 10/18/2017 Comp Metabolic Ukm211 CALCIUM 9.4 mg/dL 10/18/2017 Comp Metabolic Fro312 ALK PHOS 77 U/L 10/18/2017 Comp Metabolic Zft360 AST(SGOT) 12 U/L 10/18/2017 Comp Metabolic Aeg363 ALT(SGPT) 9 U/L 10/18/2017 Comp Metabolic Uex601 BILI T 0.4 mg/dL 10/18/2017 Comp Metabolic Lsh734 ALBUMIN 4.3 g/dL 10/18/2017 Comp Metabolic Pan165 TPRO 6.7 g/dL 10/18/2017 Comp Metabolic Oag028 GLOB 2.4 g/dL 10/18/2017 Comp Metabolic Xse326 A/G Ratio 1.8 Ratio 10/18/2017 Comp Metabolic Jsx844 Osmo 276 mOsmo 10/18/2017 Cbc With Differential Ord2 WBC 6.95 K/ul 10/18/2017 Cbc With Differential Ord2 RBC 4.27 M/ul 10/18/2017 Cbc With Differential Ord2 HGB 12.0 g/dl 10/18/2017 Cbc With Differential Ord2 HCT 37.3 % 10/18/2017 Cbc With Differential Ord2 Neut% 51.9 % 10/18/2017 Cbc With Differential Ord2 Lymph% 39.4 % 10/18/2017 Cbc With Differential Ord2 MCV 87.4 fl 10/18/2017 Cbc With Differential Ord2 [place]% 6.9 % 10/18/2017 Cbc With Differential Ord2 [...] 2.74 K/ul 10/18/2017 Cbc With Differential Ord2 [place] ABS# 0.5 K/ul 10/18/2017 Cbc With Differential Ord2 Eos ABS# 0.1 K/ul 10/18/2017 Cbc With Differential Ord2 Baso ABS# 0.0 K/ul 10/18/2017 GC/CHL PRB [id number] Chl trach DNA Negative 05/06/2017 GC/CHL PRB [id number] GC PROBE Negative 05/06/2017 Wet Prep [id number] Yeast Vaginal None 05/05/2017 Wet Prep [id number] Trichomonas None 05/05/2017 Review of Systems System [...] Procedure Codes Date THER/PROPH/DIAG INJ SC/IM CPT-4: 48071 09/25/2018 ROCEPHIN, PER 250 MG CPT-4: J0696 09/25/2018 THER/PROPH/DIAG INJ SC/IM CPT-4: 41675 08/31/2018 TRIAMCINOLONE ACET INJ NOS CPT-4: J3301 08/31/2018 ROCEPHIN, PER 250 MG CPT-4: J0696 08/31/2018 THER/PROPH/DIAG INJ SC/IM CPT-4: 19634 09/13/2017 TRIAMCINOLONE ACET INJ NOS CPT-4: J3301 09/13/2017 ROCEPHIN, PER 250 MG CPT-4: J0696 09/13/2017 Vital Signs Date Vital 09/25/2018 Blood Pressure 1: 132/74 Code : 8480-6 BMI: 25.4 Code : 68188-8 Heart Rate 1 : 45 bpm Height: 5'7" SpO2: 99% Temperature: 36.7 (C) / 98.1 (F) Weight: 162 lbs 08/31/2018 Blood Pressure 1: 130/72 Code : 8480-6 BMI: 27.7 Code : 34478-3 Heart Rate 1 : 88 bpm Height: 5'7" SpO2: 98% Weight: 177 lbs 08/29/2018 Blood Pressure 1: 120/74 Code : 8480-6 BMI: 27.7 Code : 61375-3 Heart Rate 1 : 73 bpm Height: 5'7" SpO2: 98% Temperature: 36.9 (C) / 98.4 (F) Weight: 177 lbs 04/20/2018 Blood Pressure 1: 118/70 Code : 8480-6 BMI: 27.1 Code : 46724-3 Heart Rate 1 : 80 bpm Height: 5'7" SpO2: 99% Weight: 173 lbs 10/27/2017 Blood Pressure 1: 120/74 Code : 8480-6 BMI: 26.8 Code : 33092-3 Heart Rate 1 : 63 bpm Height: 5'7" SpO2: 99% Weight: 171 lbs 10/17/2017 Blood Pressure 1: 140/72 Code : 8480-6 Heart Rate 1: 78 bpm Height: 5'7" SpO2: 98% Weight: 09/27/2017 Blood Pressure 1: 124/72 Code : 8480-6 BMI: 26.6 Code : 82095-7 Heart Rate 1 : 72 bpm Height: 5'7" SpO2: 98% Weight: 170 lbs 09/13/2017 Blood Pressure 1: 130/74 Code : 8480-6 BMI: 26.6 Code : 52904-0 Heart Rate 1 : 55 bpm Height: 5'7" SpO2: 98% Temperature: 36.6 (C) / 97.8 (F) Weight: 170 lbs 08/29/2017 Blood Pressure 1: 128/70 Code : 8480-6 BMI: 26.6 Code : 12501-6 Heart Rate 1 : 68 bpm Height: 5'7" SpO2: 98% Weight: 170 lbs 05/05/2017 Blood Pressure 1: 120/86 Code : 8480-6 BMI: 26.8 Code : 94267-4 Heart Rate 1 : 86 bpm Height: [...] laryngopharyngitis[ICD10: J06.0] Diagnosis: Other allergic rhinitis[ICD10: J30.89] Alexnadra Meraz MD, [facility] CPT-4: 29173 09/25/2018 82754 EST. PATIENT, LEVEL III Diagnosis: Acute suppurative otitis media without spontaneous rupture of ear drum, recurrent, left ear[ICD10: H66.005] Diagnosis: Acute laryngopharyngitis[ICD10: J06.0] Diagnosis: Other allergic rhinitis[ICD10: J30.89] [facility] CPT-4: 35072 08/31/2018 43211 EST. PATIENT, LEVEL III Diagnosis: Acute laryngopharyngitis[ICD10: J06.0] Diagnosis: Other allergic rhinitis[ICD10: J30.89] Alexandra Meraz MD [facility] CPT-4: 01123 08/29/2018 11877 EST. PATIENT, LEVEL III Diagnosis: Encounter for surveillance of contraceptive pills[ICD10: Z30.41] Alexandra Meraz MD [facility] CPT-4: 24076 04/20/2018 66200 EST. PATIENT, LEVEL III Diagnosis: Encounter for surveillance of contraceptive pills[ICD10: Z30.41] Alexandra Meraz MD [facility] CPT-4: 26245 10/27/2017 18208 EST. PATIENT, LEVEL IV Diagnosis: Infectious mononucleosis, unspecified without complication[ICD10: B27.90] Alexandra Meraz MD [facility] CPT-4: 65367 2016 80563 EST. PATIENT, LEVEL IV Diagnosis: Other allergic rhinitis[ICD10: J30.89] Diagnosis: Other fatigue[ICD10: R53.83] Diagnosis: Other malaise[ICD10: R53.81] Diagnosis: Gastro-esophageal reflux disease without esophagitis[ICD10: K21.9] Alexandra Meraz MD [facility] CPT-4: 48009 09/27/2017 31955 EST. PATIENT, LEVEL IV Diagnosis: Acute laryngopharyngitis[ICD10: J06.0] Diagnosis: Other acute sinusitis[ICD10: J01.80] Diagnosis: Other allergic rhinitis[ICD10: J30.89] Alexandra Meraz MD [facility] CPT-4: 90629 09/13/2017 32248 EST. PATIENT, LEVEL IV Diagnosis: Acute serous otitis media, left ear[ICD10: H65.02] Diagnosis: Acute laryngopharyngitis[ICD10: J06.0] Diagnosis: Gastro-esophageal reflux disease without esophagitis[ICD10: K21.9] Diagnosis: Encounter for initial prescription of contraceptive pills[ICD10: Z30.011] Alexandra Meraz MD, [facility] CPT-4: 12325 2016 ([id number]) PREV VISIT NEW AGE 18-39 Diagnosis: Contact with and (suspected) exposure to infections with a predominantly sexual mode of transmission[ICD10: Z20.2] Alexandra Meraz MD, [facility] CPT-4: 37383 05/05/2017 Plan of Care Planned Activity Notes [...] allergy spray. 09/25/2018 Appointment: Alexandra Hahn WPtel: [address] [place], [place] [address] (15 min) Moderate 09/25/2018 Patient Education: Patient [...] acutely worsen. 08/31/2018 [facility] [phone] [facility] ([facility]) Moderate 08/31/2018 Patient Education: Patient Medication Summary Completed 08/31/2018 Patient Education: Cough Completed 08/31/2018 Care Plan: Referral Order SNOMED-CT : [id number] Pending 08/31/2018 Visit Plan: URI - Pt [...] allergy spray. 08/29/2018 [facility]ment: [facility] [phone] [facility] ([facility] min) Moderate 08/29/2018 Patient Education: Patient Medication Summary Completed 08/29/2018 Patient Education: Sore Throat Completed 08/29/2018 Visit Plan: control - pt is to continue control as directed - pt is to notify clinic with any changes, questions, or concerns. Pt is to notify clinic if she would like to be referred to PUBLIC ADMINISTRATION PROFESSOR to talk about other control options. 04/20/2018 Appointment: Alexandra Hahn WPtel: [phone] [facility] (30 min) Complex 04/20/2018 Patient Education: Patient Medication Summary Completed 04/20/2018 Visit Plan: control - pt is to continue control as directed - pt is to notify clinic with any changes, questions, or concerns. Pt is to notify clinic if she would like to be referred to PUBLIC ADMINISTRATION PROFESSOR to talk about other control options. 10/27/2017 Appointment: Alexandra Hahn WPtel: [phone] [facility] (30 min) Complex 10/27/2017 Patient Education: Patient Medication Summary Completed 10/27/2017 Visit Plan: Fatigue, [place] - ongoing - will repeat labs - will consider US if pt develops abd pain or other acute changes - pt is to avoid contact sports while experiencing mono symptoms - pt is to rest and push fluids, pt is to notify clinic if symptoms do not improve, if they worsen, or with any changes questions or concerns. 10/17/2017 Appointment: Alexandra Hahn WPtel: [facility] (15 min) Moderate 10/17/2017 Patient Education: Patient [...] allergy spray. 09/13/2017 Appointment: Alexandra Hahn WPtel: [phone] [facility] (30 min) Complex 09/13/2017 [...] for lo loestrin - will refer to PUBLIC ADMINISTRATION PROFESSOR 08/29/2017 Appointment: Alexandra Hahn WPtel: [phone] [facility] (30 min) Complex 08/29/2017 Patient Education: Patient Medication Summary Completed 08/29/2017 Patient Education: Obesity Completed 08/29/2017 Care Plan: Referral Order SNOMED-CT : 853727771 Pending 08/29/2017 Visit Plan: Well Adult Female - exam completed. Pap and breast exam completed. Pt will be called with results of her testing. She was advised to continue with yearly annual exams. Safe sex practices discussed during office visit today. Call if any abnormal gynecologic issues during the next year, otherwise, RTC yearly or prn. 05/05/2017 [facility]ment: Alex[facility] [phone] [facility] [facility] 05/05/2017 Patient Education: Patient Medication Summary Completed 05/05/2017 Patient Education: Obesity Completed 05/05/2017 Care Plan: GC/CHL PRB Pending 05/05/2017 Care Plan: C WET LA Pending 05/05/2017 Referral: Lukasz Rhodes WPtel: Referral Initiated Referral: External, Ordering Provider Referral Initiated Instructions Comment Start nexium daily - let me know if it is helping and we can send you a script Start amoxicillin - take with food, take a probiotic (culturelle, Lumidigm, or generic) I will refer you to PUBLIC ADMINISTRATION PROFESSOR - let me know if you have [...] for lo loestrin - will refer to PUBLIC ADMINISTRATION PROFESSOR Tuesday 09/18 at 1:40PM - they will [...] otherwise, RTC yearly or prn. . Fatigue, [place] - ongoing - will repeat labs - [...] she would like to be referred to PUBLIC ADMINISTRATION PROFESSOR to talk about other control options. . control - pt is to continue control as directed - pt is to notify clinic with any changes, questions, or concerns. Pt is to notify clinic if she would like to be referred to PUBLIC ADMINISTRATION PROFESSOR to talk about other control options. zyrtec [...]
--- OUTSIDE RECORDS SUMMARY | 2018-11-21 01:13 | XMS REPORT | CCD ---
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 Name Role Phone PP Unavailable CCM Unavailable Summary Purpose Interface Exchange Insurance Providers Payer name Policy type / Coverage type Covered libertarian ID Effective Begin Date Effective End Date [employer] Schrodinger [id number] 2017 Unknown [place] (2013 THRU) Schrodinger [id number] 2017 Unknown Family History Family History data not found Social History Social History Element Codes Description Effective Dates Marital status Unknown Single 05/05/2017 Number of children Unknown 0 05/05/2017 Employment Unknown Currently employed [employer] 05/05/[address]: 420951078 Never smoker 05/05/[address]: 724546118 Never drinks alcohol 05/05/2017 Allergies, Adverse Reactions, [...] Fill Instructions Keflex 500 mg capsule RxNorm: 978872 1 Capsule(s) PO TID 201710/04/2018 Active ceftriaxone 500 mg solution for injection RxNorm: 9589318 Inj 09/25/2018 09/25/2018 Inactive levonorgestrel 1.5 mg tablet RxNorm: 779576 1 Tablet(s) PO once as soon as possible within 72 hours of unprotected sex 09/08/2018 No Stop Date Active Lo Loestrin Fe 1 mg-10 mcg (24)/10 mcg (2) tablet RxNorm: 4061199 1 Tablet(s) PO UD skip placebo week 09/05/20182018 Active prednisone 10 mg tablet RxNorm: 333363 Tablet(s) PO 08/31/2018 No Stop Date Active 6, 5,4,3,2,1 ceftriaxone 500 mg solution for injection RxNorm: 5573334 1 Milliliter(s) Inj 08/31/2018 08/31/2018 Inactive Kenalog 40 mg/mL suspension for injection RxNorm: 2781789 1 Milliliter(s) Inj 08/31/2018 08/31/2018 Inactive Augmentin 875 mg-125 mg tablet RxNorm: 590240 3/4 Tablet(s) PO BID 08/31/2018 09/09/2018 Inactive amoxicillin 500 mg capsule RxNorm: 274568 1 Capsule(s) PO TID 08/29/2018 08/29/2018 Inactive Lo Loestrin Fe 1 mg-10 mcg (24)/10 mcg (2) tablet RxNorm: 9086173 1 Tablet(s) PO UD 04/20/2018 09/04/2018 Inactive Lo Loestrin Fe 1 mg-10 mcg (24)/10 mcg (2) tablet RxNorm: 4552933 TAKE ONE TABLET BY MOUTH DIRECTED 03/27/2018 No Stop Date Active Lo Loestrin Fe 1 mg-10 mcg (24)/10 mcg (2) tablet RxNorm: 9285026 1 Tablet(s) PO UD 03/27/2018 04/19/2018 Inactive Lo Loestrin Fe 1 mg-10 mcg (24)/10 mcg (2) tablet RxNorm: 0246877 1 Tablet(s) PO UD 10/27/2017 02/23/2018 Inactive Tessalon Perles 100 mg capsule RxNorm: 177574 1-2 Capsule(s) PO TID as needed cough 09/14/2017 09/13/2017 Inactive Tessalon Perles 100 mg capsule RxNorm: 209762 1-2 Capsule(s) PO TID as needed cough 09/14/2017 09/18/2017 Inactive ceftriaxone 500 mg solution for injection RxNorm: 5852373 Inj 09/13/2017 09/13/2017 Inactive Kenalog 40 mg/mL suspension for injection RxNorm: 0565205 Milliliter(s) Inj 09/13/2017 09/13/2017 Inactive Zithromax Z-Rafael 250 mg tablet RxNorm: 903729 1 Tablet(s) PO UD 09/13/2017 04/10/2018 Inactive prednisone 20 mg tablet RxNorm: 377265 2 Tablet(s) PO daily 09/17/2017 Inactive Nexium 24HR 22.3 mg capsule,delayed release RxNorm: 192435 1 Capsule(s) PO daily 08/29/2017 04/11/2018 Inactive Lo Loestrin Fe 1 mg-10 mcg (24)/10 mcg (2) tablet RxNorm: 1193809 1 Tablet(s) PO UD 08/29/2017 10/26/2017 Inactive amoxicillin 500 mg capsule RxNorm: 571462 1 Capsule(s) PO TID 08/29/2017 09/04/2017 Inactive Depo-Provera 150 mg/mL intramuscular syringe RxNorm: 8941790 Milliliter(s) IM No Start Date 08/27/2017 Inactive levonorgestrel 1.5 mg tablet RxNorm: 754106 1 Tablet(s) PO once as soon as possible within 72 hours of unprotected sex No Start Date 09/07/2018 Inactive Medication Administered Medication Codes Instructions Start Date Status ceftriaxone 500 mg solution for injection RxNorm: 9256144 09/25/2018 Active ceftriaxone 500 mg solution for injection RxNorm: 7866521 1Milliliter 08/31/2018 No longer Active Kenalog 40 mg/mL suspension for injection RxNorm: 3472219 1Milliliter 08/31/2018 No longer Active ceftriaxone 500 mg solution for injection RxNorm: 8075501 09/13/2017 No longer Active Kenalog 40 mg/mL suspension for injection RxNorm: 2434493 Milliliter 09/13/2017 No longer Active Immunizations No [...] Item Item Code Result Date Comp Metabolic Nuc360 NA 139 mEq/L 10/18/2017 Comp Metabolic Wlr978 K 4.3 mEq/L 10/18/2017 Comp Metabolic Dtx209 CL 103 mEq/L 10/18/2017 Comp Metabolic Cym704 CO2 28.0 mEq/L 10/18/2017 Comp Metabolic Tyl952 ANION GAP 12 10/18/2017 Comp Metabolic Vcu402 GLUCOSE 82 mg/dL 10/18/2017 Comp Metabolic Uyo446 Creat 0.7 mg/dL 10/18/2017 Comp Metabolic Mfx817 eGFR 106 ml/min/1.73m2 10/18/2017 Comp Metabolic Aub347 BUN 10 mg/dL 10/18/2017 Comp Metabolic Vhm922 B/C Ratio 13.5 Ratio 10/18/2017 Comp Metabolic Xok715 CALCIUM 9.4 mg/dL 10/18/2017 Comp Metabolic Xcp658 ALK PHOS 77 U/L 10/18/2017 Comp Metabolic Xdz541 AST(SGOT) 12 U/L 10/18/2017 Comp Metabolic Msj380 ALT(SGPT) 9 U/L 10/18/2017 Comp Metabolic Wel367 BILI T 0.4 mg/dL 10/18/2017 Comp Metabolic Cao589 ALBUMIN 4.3 g/dL 10/18/2017 Comp Metabolic Ssl328 TPRO 6.7 g/dL 10/18/2017 Comp Metabolic Qei909 GLOB 2.4 g/dL 10/18/2017 Comp Metabolic Leb603 A/G Ratio 1.8 Ratio 10/18/2017 Comp Metabolic Uqd556 Osmo 276 mOsmo 10/18/2017 Cbc With Differential [...] 87.4 fl 10/18/2017 Cbc With Differential Ord2 Pinal% 6.9 % 10/18/2017 Cbc With Differential Ord2 [...] 2.74 K/ul 10/18/2017 Cbc With Differential Ord2 P[place] ABS# 0.5 K/ul 10/18/2017 Cbc With Differential Ord2 Eos ABS# 0.1 K/ul 10/18/2017 Cbc With Differential Ord2 Baso ABS# 0.0 K/ul 10/18/2017 GC/CHL PRB [id number] Chl trach DNA Negative 05/06/2017 GC/CHL PRB 9042034 GC PROBE Negative 05/06/2017 Wet Prep [id number] Yeast Vaginal None 05/05/2017 Wet Prep [id number] Trichomonas None 05/05/2017 Review of Systems System [...] Procedure Codes Date THER/PROPH/DIAG INJ SC/IM CPT-4: 31499 09/25/2018 ROCEPHIN, PER 250 MG CPT-4: J0696 09/25/2018 THER/PROPH/DIAG INJ SC/IM CPT-4: 09469 08/31/2018 TRIAMCINOLONE ACET INJ NOS CPT-4: J3301 08/31/2018 ROCEPHIN, PER 250 MG CPT-4: J0696 08/31/2018 THER/PROPH/DIAG INJ SC/IM CPT-4: 21519 09/13/2017 TRIAMCINOLONE ACET INJ NOS CPT-4: J3301 09/13/2017 ROCEPHIN, PER 250 MG CPT-4: J0696 09/13/2017 Vital Signs Date Vital 09/25/2018 Blood Pressure 1: 132/74 Code : 8480-6 BMI: 25.4 Code : 01692-0 Heart Rate 1 : 45 bpm Height: 5'7" SpO2: 99% Temperature: 36.7 (C) / 98.1 (F) Weight: 162 lbs 08/31/2018 Blood Pressure 1: 130/72 Code : 8480-6 BMI: 27.7 Code : 42720-0 Heart Rate 1 : 88 bpm Height: 5'7" SpO2: 98% Weight: 177 lbs 08/29/2018 Blood Pressure 1: 120/74 Code : 8480-6 BMI: 27.7 Code : 04188-7 Heart Rate 1 : 73 bpm Height: 5'7" SpO2: 98% Temperature: 36.9 (C) / 98.4 (F) Weight: 177 lbs 04/20/2018 Blood Pressure 1: 118/70 Code : 8480-6 BMI: 27.1 Code : 05435-1 Heart Rate 1 : 80 bpm Height: 5'7" SpO2: 99% Weight: 173 lbs 10/27/2017 Blood Pressure 1: 120/74 Code : 8480-6 BMI: 26.8 Code : 83943-1 Heart Rate 1 : 63 bpm Height: 5'7" SpO2: 99% Weight: 171 lbs 10/17/2017 Blood Pressure 1: 140/72 Code : 8480-6 Heart Rate 1: 78 bpm Height: 5'7" SpO2: 98% Weight: 09/27/2017 Blood Pressure 1: 124/72 Code : 8480-6 BMI: 26.6 Code : 99144-0 Heart Rate 1 : 72 bpm Height: 5'7" SpO2: 98% Weight: 170 lbs 09/13/2017 Blood Pressure 1: 130/74 Code : 8480-6 BMI: 26.6 Code : 32547-3 Heart Rate 1 : 55 bpm Height: 5'7" SpO2: 98% Temperature: 36.6 (C) / 97.8 (F) Weight: 170 lbs 08/29/2017 Blood Pressure 1: 128/70 Code : 8480-6 BMI: 26.6 Code : 27651-0 Heart Rate 1 : 68 bpm Height: 5'7" SpO2: 98% Weight: 170 lbs 05/05/2017 Blood Pressure 1: 120/86 Code : 8480-6 BMI: 26.8 Code : 73355-2 Heart Rate 1 : 86 bpm Height: [...] Other allergic rhinitis[ICD10: J30.89] Alexandra Meraz MD, [facility] CPT-4: 91200 09/25/2018 22248 EST. PATIENT, LEVEL III Diagnosis: Acute suppurative otitis media without spontaneous rupture of ear drum, recurrent, left ear[ICD10: H66.005] Diagnosis: Acute laryngopharyngitis[ICD10: J06.0] Diagnosis: Other allergic rhinitis[ICD10: J30.89] [facility] CPT-4: 09711 08/31/2018 53491 EST. PATIENT, LEVEL III Diagnosis: Acute laryngopharyngitis[ICD10: J06.0] Diagnosis: Other allergic rhinitis[ICD10: J30.89] Alexandra Meraz MD [facility] CPT-4: 40425 08/29/2018 30713 EST. PATIENT, LEVEL III Diagnosis: Encounter for surveillance of contraceptive pills[ICD10: Z30.41] Alexandra Meraz MD [facility] CPT-4: 52396 04/20/2018 56252 EST. PATIENT, LEVEL III Diagnosis: Encounter for surveillance of contraceptive pills[ICD10: Z30.41] Alexandra Meraz MD [facility] CPT-4: 26234 10/27/2017 67970 EST. PATIENT, LEVEL IV Diagnosis: Infectious mononucleosis, unspecified without complication[ICD10: B27.90] Alexandra Meraz MD [facility] CPT-4: 96275 2016 24078 EST. PATIENT, LEVEL IV Diagnosis: Other allergic rhinitis[ICD10: J30.89] Diagnosis: Other fatigue[ICD10: R53.83] Diagnosis: Other malaise[ICD10: R53.81] Diagnosis: Gastro-esophageal reflux disease without esophagitis[ICD10: K21.9] Alexandra Meraz MD [facility] CPT-4: 06796 09/27/2017 84405 EST. PATIENT, LEVEL IV Diagnosis: Acute laryngopharyngitis[ICD10: J06.0] Diagnosis: Other acute sinusitis[ICD10: J01.80] Diagnosis: Other allergic rhinitis[ICD10: J30.89] Alexandra Meraz MD [facility] CPT-4: 31658 09/13/2017 90169 EST. PATIENT, LEVEL IV Diagnosis: Acute serous otitis media, left ear[ICD10: H65.02] Diagnosis: Acute laryngopharyngitis[ICD10: J06.0] Diagnosis: Gastro-esophageal reflux disease without esophagitis[ICD10: K21.9] Diagnosis: Encounter for initial prescription of contraceptive pills[ICD10: Z30.011] Alexandra Meraz MD, [facility] CPT-4: 01634 2016 ([id number]) PREV VISIT NEW AGE 18-39 Diagnosis: Contact with and (suspected) exposure to infections with a predominantly sexual mode of transmission[ICD10: Z20.2] Alexandra Meraz MD, [facility] CPT-4: 98284 05/05/2017 Plan of Care Planned Activity Notes [...] in the nasal steroid allergy spray. 09/25/2018 Patient Education: Patient Medication Summary Completed [...] acutely worsen. 08/31/2018 Appointment: Alexandra Hahn WPtel: [phone] [facility] (15 min) Moderate 08/31/2018 Patient Education: Patient Medication Summary Completed 08/31/2018 Patient Education: Cough Completed 08/31/2018 Care Plan: Referral Order SNOMED-CT : [id number] Pending 08/31/2018 Visit Plan: URI - Pt [...] spray. 08/29/2018 [phone] ([facility] min) Moderate 08/29/2018 Patient Education: Patient Medication Summary Completed 08/29/2018 Patient Education: Sore Throat Completed 08/29/2018 Visit Plan: control - pt is to continue control as directed - pt is to notify clinic with any changes, questions, or concerns. Pt is to notify clinic if she would like to be referred to COAGULATING BATH OPERATOR to talk about other control options. 04/20/2018 App[facility]ment: [facility] [phone] [facility] (30 min) Complex 04/20/2018 Patient Education: Patient Medication Summary Completed 04/20/2018 Visit Plan: control - pt is to continue control as directed - pt is to notify clinic with any changes, questions, or concerns. Pt is to notify clinic if she would like to be referred to COAGULATING BATH OPERATOR to talk about other control options. 10/27/2017 App[facility]ment: [phone] [facility] (30 min) Complex 10/27/2017 Patient Education: Patient Medication Summary Completed 10/27/2017 Visit Plan: Fatigue, Pinal - ongoing - will repeat labs - will consider US if pt develops abd pain or other acute changes - pt is to avoid contact sports while experiencing mono symptoms - pt is to rest and push fluids, pt is to notify clinic if symptoms do not improve, if they worsen, or with any changes questions or concerns. 10/17/2017 Appointment: Alexandra Hahn WPtel: [phone] [facility] (15 min) Moderate 10/17/2017 Patient Education: Patient [...] concerns. 09/27/2017 [facility]ment: [facility] [phone] [facility] (15 min) Moderate 09/27/2017 Patient Education: Patient Medication Summary Completed 09/27/2017 Patient Education: Obesity Completed 09/27/2017 Referral: Lukasz Rhodesl: Referral Initiated 09/19/2017 Visit Plan: URI - [...] allergy spray. 09/13/2017 Appointment: Alexandra Hahn WPtel: [phone] [facility] (30 min) Complex 09/13/2017 Patient Education: Patient [...] for lo loestrin - will refer to COAGULATING BATH OPERATOR 08/29/2017 Appointment: Alexandra Hahn WPtel: [phone] [facility] (30 min) Complex 08/29/2017 Patient Education: Patient Medication Summary Completed 08/29/2017 Patient Education: Obesity Completed 08/29/2017 Care Plan: Referral Order SNOMED-CT : 946330928 Pending 08/29/2017 Visit Plan: Well Adult Female - exam completed. Pap and breast exam completed. Pt will be called with results of her testing. She was advised to continue with yearly annual exams. Safe sex practices discussed during office visit today. Call if any abnormal gynecologic issues during the next year, otherwise, RTC yearly or prn. 05/05/2017 App[facility]ment: [facility] [phone] [facility] New Patient 05/05/2017 Patient Education: Patient Medication Summary Completed 05/05/2017 Patient Education: Obesity Completed 05/05/2017 Care Plan: GC/CHL PRB Pending 05/05/2017 Care Plan: C WET WA Pending 05/05/2017 Referral: Lukasz Rhodes WPtel: Referral Initiated Referral: External, Ordering Provider Referral Initiated Instructions Comment Start nexium daily - let me know if it is helping and we can send you a script Start amoxicillin - take with food, take a probiotic (culturelle, [employer], or generic) I will refer you to COAGULATING BATH OPERATOR - let me know if you have [...] for lo loestrin - will refer to COAGULATING BATH OPERATOR Tuesday 09/18 at 1:40PM - they will [...] otherwise, RTC yearly or prn. . Fatigue, Pinal - ongoing - will repeat labs - [...] she would like to be referred to COAGULATING BATH OPERATOR to talk about other control options. . control - pt is to continue control as directed - pt is to notify clinic with any changes, questions, or concerns. Pt is to notify clinic if she would like to be referred to COAGULATING BATH OPERATOR to talk about other control options. zyrtec [...]
[2018-11-21] MEDS ORDERED: PANTOPRAZOLE 40 MG (PROTONIX) VIAL ONE (01:24)
[2018-11-21] MEDS ORDERED: ONDANSETRON 4 MG/2 ML (SDV) Z0FRAN ONE (01:24)
[2018-11-21] MEDS ORDERED: LACTATED RINGERS 1,000 ML IV ONE ×2 (01:24→01:25)
[2018-11-21] MEDS ORDERED: PANTOPRAZOLE 40 MG (PROTONIX) VIAL IV STA (01:25)
[2018-11-21] MEDS ORDERED: ONDANSETRON 4 MG/2 ML (SDV) Z0FRAN IVP ONE ×2 (01:30→02:00)
[2018-11-21 01:33] LABS: BASOPHILS # (AUTO) 0.1 10^3/uL (0.0-0.1); BASOPHILS % (AUTO) 0 % (0-10); EOSINOPHILS # (AUTO) 0.1 10^3/uL (0.0-0.3); EOSINOPHILS % (AUTO) 0 % (0-10); HEMATOCRIT 38 % (35-52); HEMOGLOBIN 12.6 G/DL (11.5-16.0); LYMPHOCYTES # (AUTO) 4.1 X 10^3 (1.0-4.0); LYMPHOCYTES % (AUTO) 30 % (12-44); MEAN CORPUSCULAR HEMOGLOBIN 30 PG (25-34); MEAN CORPUSCULAR HGB CONC 33 G/DL (32-36); MEAN CORPUSCULAR VOLUME 90 FL (80-99); MONOCYTES # (AUTO) 0.7 X 10^3 (0.0-1.0); MONOCYTES % (AUTO) 5 % (0-12); NEUTROPHILS # (AUTO) 8.6 X 10^3 (1.8-7.8); NEUTROPHILS % (AUTO) 64 % (42-75); PLATELET COUNT 284 10^3/uL (130-400); RED BLOOD COUNT 4.26 10^6/uL (4.35-5.85); RED CELL DISTRIBUTION WIDTH 13.7 % (10.0-14.5); WHITE BLOOD COUNT 13.5 10^3/uL (4.3-11.0)
[2018-11-21 01:55] LABS: ALANINE AMINOTRANSFERASE 16 U/L (0-55); ALBUMIN 4.6 GM/DL (3.2-4.5); ALKALINE PHOSPHATASE 80 U/L (40-136); AMYLASE 50 U/L (25-125); BILIRUBIN,TOTAL 0.3 MG/DL (0.1-1.0); BUN/CREATININE RATIO 19; CALCIUM 9.1 MG/DL (8.5-10.1); CARBON DIOXIDE 19 MMOL/L (21-32); CHLORIDE 108 MMOL/L (98-107); CREATININE SERUM 0.78 MG/DL (0.60-1.30); GFR ESTIMATED > 60; GLUCOSE 102 MG/DL (70-105); LIPASE 26 U/L (8-78); POTASSIUM 3.6 MMOL/L (3.6-5.0); SODIUM 142 MMOL/L (135-145); TOTAL PROTEIN 7.5 GM/DL (6.4-8.2)
[2018-11-21] MEDS ORDERED: SCOPOLAMINE 1.5 MG (TRANSDERM-SCOP) PATCH TD ONE (02:00)
--- NOTE | 2018-11-21 02:28 | NUR ---
Pt's friends gave staff, pt's phone and earrings. Put in bag and pt sticker- located in pt's room
[2018-11-21 03:03] LABS: BILIRUBIN,URINE NEGATIVE (NEGATIVE); CLARITY,URINE CLEAR; COLOR,URINE YELLOW; GLUCOSE, URINE (UA) NEGATIVE (NEGATIVE); KETONES,URINE NEGATIVE (NEGATIVE); LEUKOCYTE ESTERASE ,URINE NEGATIVE (NEGATIVE); NITRITE,URINE NEGATIVE (NEGATIVE); PH,URINE 6 (5-9); PROTEIN,URINE NEGATIVE (NEGATIVE); UROBILINOGEN,URINE NORMAL (NORMAL)
[2018-11-21 03:16] LABS: AMPHETAMINE SCREEN, URINE POSITIVE (NEGATIVE); BENZODIAZEPINES SCREEN URINE NEGATIVE (NEGATIVE); CANNABINOID SCREEN, URINE POSITIVE (NEGATIVE); COCAINE SCREEN URINE NEGATIVE (NEGATIVE); METHAMPHETAMINE SCREEN URINE S NEGATIVE (NEGATIVE)
--- NOTE | 2018-11-21 03:16 | ED General ---
General Chief Complaint: Substance Abuse Stated Complaint: ETOH Nursing Triage Note: Pt arrived by private vehicle with friends. Pt had been drinking since 2129 and drinking vodka. Pt was vomiting in the waiting room and in patient's ER room x 3 total. Pt denies any other alcohol or drugs. Nursing Sepsis Screen: No Definite Risk Allergies and Home Medications Allergies Coded Allergies: No Known Drug Allergies (Unverified , 11/21/18) Past Yeaaflp-Jzeume-Fmcpjz Hx Patient Social History Alcohol Use: Occasionally Uses Alcohol Beverage of Choice: Vodka Recreational Drug Use: No Smoking Status: Never a Smoker Recent Foreign Travel: No Contact w/Someone Who Travel: No Recent Infectious Disease Expo: No Recent Hopitalizations: No Physical Abuse: No Sexual Abuse: No Mistreated: No Fear: No Seasonal Allergies Seasonal Allergies: No Past Medical History Surgeries: Yes Tonsillectomy Respiratory: No Cardiac: No Neurological: No Genitourinary: No Gastrointestinal: No Musculoskeletal: No Endocrine: No HEENT: No Cancer: No Psychosocial: No Integumentary: No Blood Disorders: No Physical Exam Vital Signs Vital Signs - First Documented 11/21/18 01:20 Temp 95.4 Pulse 56 Resp 17 B/P (MAP) 124/88 (100) Pulse Ox 98 O2 Delivery Room Air Capillary Refill : Less Than 3 Seconds Height, Weight, BMI Height: 5'7.50" Weight: 156lbs. 0oz. 70.833211kv; BMI Method:Stated Progress/Results/Core Measures Suspected Sepsis Recent Fever Within 48 Hours: No Infection Criteria Present: None New/Unexplained Altered Menta: No Sepsis Screen: No Definite Risk SIRS Temperature:95.4 Pulse: 56 Respiratory Rate: 17 Laboratory Tests 11/21/18 01:27: White Blood Count 13.5H Blood Pressure 124 /88 Mean: 100 Laboratory Tests 11/21/18 01:27: Creatinine 0.78, Platelet Count 284, Total Bilirubin 0.3 Results/Orders Lab Results Laboratory Tests Test 11/21/18 01:27 11/21/18 02:43 Range/Units White Blood Count 13.5 H 4.3-11.0 10^3/uL Red Blood Count 4.26 L 4.35-5.85 10^6/uL Hemoglobin 12.6 11.5-16.0 G/DL Hematocrit 38 35-52 % Mean Corpuscular Volume 90 80-99 FL Mean Corpuscular Hemoglobin 30 25-34 PG Mean Corpuscular Hemoglobin Concent 33 32-36 G/DL Red Cell Distribution Width 13.7 10.0-14.5 % Platelet Count 284 130-400 10^3/uL Mean Platelet Volume 10.0 7.4-10.4 FL Neutrophils (%) (Auto) 64 42-75 % Lymphocytes (%) (Auto) 30 12-44 % Monocytes (%) (Auto) 5 0-12 % Eosinophils (%) (Auto) 0 0-10 % Basophils (%) (Auto) 0 0-10 % Neutrophils # (Auto) 8.6 H 1.8-7.8 X 10^3 Lymphocytes # (Auto) 4.1 H 1.0-4.0 X 10^3 Monocytes # (Auto) 0.7 0.0-1.0 X 10^3 Eosinophils # (Auto) 0.1 0.0-0.3 10^3/uL Basophils # (Auto) 0.1 0.0-0.1 10^3/uL Sodium Level 142 135-145 MMOL/L Potassium Level 3.6 3.6-5.0 MMOL/L Chloride Level 108 H 98-107 MMOL/L Carbon Dioxide Level 19 L 21-32 MMOL/L Anion Gap 15 H 5-14 MMOL/L Blood Urea Nitrogen 15 7-18 MG/DL Creatinine 0.78 0.60-1.30 MG/DL Estimat Glomerular Filtration Rate > 60 BUN/Creatinine Ratio 19 Glucose Level 102 70-105 MG/DL Calcium Level 9.1 8.5-10.1 MG/DL Corrected Calcium 8.5-10.1 MG/DL Total Bilirubin 0.3 0.1-1.0 MG/DL Aspartate Amino Transf (AST/SGOT) 17 5-34 U/L Alanine Aminotransferase (ALT/SGPT) 16 0-55 U/L Alkaline Phosphatase 80 40-136 U/L Total Protein 7.5 6.4-8.2 GM/DL Albumin 4.6 H 3.2-4.5 GM/DL Amylase Level 50 25-125 U/L Lipase 26 8-78 U/L Serum Test, Qualitative NEGATIVE NEGATIVE Serum Alcohol 254 H <10 MG/DL My Orders Orders - DYLLAN GALAN DO Saline Lock/Iv-Start (11/21/18 01:22) Monitor-Rhythm Ecg Trace Only (11/21/18 01:22) Alcohol (11/21/18 01:22) Amylase (11/21/18 01:22) Cbc With Automated Diff (11/21/18 01:22) Comprehensive Metabolic Panel (11/21/18 01:22) Drug Screen Stat (Urine) (11/21/18 01:22) Hcg,Qualitative Serum (11/21/18 01:22) Lipase (11/21/18 01:22) Ua Culture If Indicated (11/21/18 01:22) Saline Lock/Iv-Start (11/21/18 01:25) Lactated Ringers (Lr 1000 Ml Iv Solution (11/21/18 01:25) Ondansetron Injection (Zofran Injectio (11/21/18 01:30) Pantoprazole Injection (Protonix Injecti (11/21/18 01:25) Ondansetron Injection (Zofran Injectio (11/21/18 01:24) Lactated Ringers (Lr 1000 Ml Iv Solution (11/21/18 01:24) Pantoprazole Injection (Protonix Injecti (11/21/18 01:24) Ondansetron Injection (Zofran Injectio (11/21/18 02:00) Scopolamine Patch (Transderm-Scop Patch) (11/21/18 02:00) Medications Given in ED Current Medications Medications Dose Ordered Sig/Lois Route Start Time Stop Time Status Last Admin Dose Admin Lactated Ringer's 1,000 ml @ 0 mls/hr Q0M ONCE IV 11/21/18 01:25 11/21/18 01:27 DC 11/21/18 01:33 1,000 MLS/HR Ondansetron HCl 8 mg ONCE ONCE IVP 11/21/18 01:30 11/21/18 01:31 DC 11/21/18 01:33 8 MG Ondansetron HCl 8 mg ONCE ONCE IVP 11/21/18 02:00 11/21/18 02:01 DC 11/21/18 02:08 8 MG Scopolamine 1.5 mg ONCE ONCE TD 11/21/18 02:00 11/21/18 02:01 DC 11/21/18 02:08 1.5 MG Vital Signs/I&O 11/21/18 01:20 Temp 95.4 Pulse 56 Resp 17 B/P (MAP) 124/88 (100) Pulse Ox 98 O2 Delivery Room Air Capillary Refill : Less Than 3 Seconds Blood Pressure Mean: 100 Departure Impression Primary Impression: Alcohol intoxication Additional Impression: Illicit drug use Disposition: HOME, SELF-CARE Condition: Stable Departure-Patient Inst. Referrals: NO,LOCAL PHYSICIAN (PCP/Family) Primary Care Physician Patient Instructions: ALCOHOL AND SUBSTANCE ABUSE Add. Discharge Instructions: NO ALCOHOL!! NO DRUGS!!! LOTS OF CLEAR LIQUIDS--WATER, BROTH, JELLO, GATORADE TOMORROW IF YOU ARE BETTER, ADD BRATS DIET TO CLEAR LIQUIDS--BANANAS, RICE, APPLESAUCE, TOAST, SALTINES FOLLOW UP WITH YOUR DR NEEDED All discharge instructions reviewed with patient and/or family. Voiced understanding. DYLLAN GALAN DO Nov 21, 2018 03:15
[2018-11-21 03:17] LABS: BACTERIA,URINE TRACE /HPF; BARBITURATE SCREEN URINE NEGATIVE (NEGATIVE); METHADONE STAT NEGATIVE (NEGATIVE); OPIATE SCREEN URINE NEGATIVE (NEGATIVE); OXYCODONE STAT NEGATIVE (NEGATIVE); PROPOXYPHENE STAT NEGATIVE (NEGATIVE); SQUAMOUS EPITHELIAL CELL,UR 0-2 /HPF; TRICYCLIC ANTIDEPRESSANTS SCRE NEGATIVE (NEGATIVE)
[2018-11-21 03:39] VITALS: BP 131/95
== END 2018-11-21 03:38 | disposition home or self-care (01) ==
LOC: ER 01:06
DX: F10.129 Alcohol abuse with intoxication, unspecified (principal); F19.10 Other psychoactive substance abuse, uncomplicated; Z90.89 Acquired absence of other organs
CPT/HCPCS: 36415; 80053; 80306; 80320; 81000; 82150; 83690; 84703; 85025; 93041

== ENCOUNTER → 2019-10-08 | Outpatient (CLI) | payer OTHER ==
--- NOTE | 2019-10-08 15:49 | Diagnostic Imaging Report ---
INDICATION: Shortness of breath. FINDINGS: The lungs are clear. The heart and vessels are normal. No failure, effusion, or pneumothorax. No chest wall pathology. No free air beneath the diaphragms. IMPRESSION: Normal two-view chest. Called to Katie at 3:40 P.M. by cvb. Dictated by: Dictated on workstation # [id number]
== END ==
LOC: RAD 13:56
PROVIDERS: ATTEND Nurse Practitioner Family
DX: R05 Cough (principal); R06.2 Wheezing; R06.02 Shortness of breath
CPT/HCPCS: 71046